=== PATIENT | female | born 1975 | race Caucasian/White ===

== ENCOUNTER → 2017-11-25 14:44 | Outpatient (CLI) | payer OTHER, SELFPAY | PROVIDERS: Family Provider Family Medicine; PCP Family Medicine; Visit Provider Obstetrics & Gynecology Gynecology | DX: O09.521 Supervision of elderly multigravida, first trimester (principal); Z3A.00 Weeks of gestation of pregnancy not specified | CPT/HCPCS: 36415; 84702 ==

== ENCOUNTER → 2017-11-26 09:13 | Outpatient (CLI) | payer OTHER, SELFPAY ==
--- NOTE | 2017-11-26 09:34 | US_ITS ---
STUDY: FIRST TRIMESTER OBSTETRICAL ULTRASOUND REASON FOR EXAM: Female, 41 years old. Supervision of first trimester. LMP: September 28, 2017 TECHNIQUE: Transvaginal PRIOR ULTRASOUND: None. FINDINGS: There is visualization of a single gestational sac in a normal intrauterine position. The mean sac diameter (MSD) measures 3.37 cm, indicating an estimated gestational age (EGA) of 8 weeks, 6 days. The gestational sac shape is within normal limits. There is a 2.3 x 0.9 x 0.5 cm subchorionic fluid collection. There is a visualized yolk sac. The yolk sac measures 6.7 mm. The placenta is non-visualized. There is visualization of a live embryo. The crown-rump length (CRL) measures 1.89 cm, indicating an estimated gestational age (EGA) of 8 weeks, 3 days. There is demonstrated cardiac activity with a heart rate of 157 bpm. The estimated gestation age (EGA) by LMP is 8 weeks, 3 days. The estimated date of delivery (EVER) by LMP is July 05, 2018. The estimated gestation age (EGA) by US is 8 weeks, 5 days. The estimated date of delivery (EVER) by US is July 03, 2018. The uterus measures 10.6 x 6.3 x 7.0 cm. There is no demonstrated uterine fibroid. The cervix is closed. There is nonvisualization of the ovaries. There is no fluid in the cul de sac. US/Transvaginal w/Preg US IMPRESSION: Viable early intrauterine with an estimated gestational age by ultrasound of 8 weeks and 5 days. 2.3 x 0.9 x 0.5 cm subchorionic hemorrhage. Electronically Signed: Emily Laughlin MD at 23:02 EDT Tel , Service support ,
== END ==
PROVIDERS: Family Provider Family Medicine; PCP Family Medicine; Visit Provider Obstetrics & Gynecology Gynecology
DX: O09.521 Supervision of elderly multigravida, first trimester (principal); Z3A.00 Weeks of gestation of pregnancy not specified
CPT/HCPCS: 76817

== ENCOUNTER → 2017-12-09 11:13 | Outpatient (CLI) | payer OTHER, SELFPAY ==
[2017-12-17 16:09] LABS: Activated Protein C Resistance 2.2 ratio (2.2-3.5); Dilute Prothrombin Time (dPT) 46.4 sec (0.0-55.0); Dilute Russell Viper Venom 40.1 sec (0.0-47.0); PTT-LA 31.8 sec (0.0-51.9); Thrombin Time 15.4 sec (0.0-23.0)
[2017-12-18 11:38] LABS: Anti-Cardiolipin Ab, IgG, Qn < 9 GPL U/mL (0-14); Anti-Cardiolipin Ab, IgM, Qn < 9 MPL U/mL (0-12); Interpretation Comment: (.); Protein S, Free 65 % (57-157); Protein S, Total 82 % (60-150)
== END ==
PROVIDERS: Family Provider Family Medicine; PCP Family Medicine; Visit Provider Obstetrics & Gynecology Gynecology
DX: Z34.81 Encounter for supervision of other normal pregnancy, first trimester (principal); Z86.72 Personal history of thrombophlebitis
CPT/HCPCS: 36415; 81240; 81241; 81291; 85305; 85306; 85307; 86147; 87086; 87088

== ENCOUNTER → 2018-02-02 07:59 | Outpatient (CLI) | payer OTHER, SELFPAY ==
--- NOTE | 2018-02-02 08:01 | US_ITS ---
STUDY: SECOND AND THIRD TRIMESTER OBSTETRICAL ULTRASOUND REASON FOR EXAM: Female, 42 years old. Routine survey. LMP: September 26, 2017. TECHNIQUE: Transabdominal TECHNICAL QUALITY: Adequate. PRIOR ULTRASOUND: Comparison is made with prior study dated November 26, 2017. FINDINGS: There is a single intrauterine fetus. The fetus is in a breech presentation. There is demonstrated cardiac activity with a heart rate of 142 bpm. There is a normal amniotic fluid volume. The largest amniotic fluid pocket measures 4.7 cm x 7.0 cm. The amniotic fluid index (ARTEMIO) is within normal limits. The placenta is posterior in location and is not low lying. There are Grade 0 placental changes. The cervix measures 4.6 cm in length. The bilateral adnexal regions are normal. BIOMETRY: BPD: 4.47 cm: 19 weeks, 4 days HC: 16.74 cm: 19 weeks, 3 days AC: 13.83 cm: 19 weeks, 2 days FL: 2.7 cm: 8 weeks, 2 days CI: 76% FL/BPD: 60% FL/HC: FL/AC: 20% HC/AC: 1.21 age by current US: 19 weeks, 1 days. EVER by current US: June 28, 2018. Estimated weight: 261 grams, +/- 38 grams, 71 %. age by prior US: 18 weeks, 3 days. EVER by prior US: July 03, 2018. Age by LMP: 18 weeks, 3 days. EVER by LMP: July 03, 2018. ANATOMY: Gender: Male Cranium: Normal lateral ventricles. Normal choroid plexus. Normal cerebellum. Normal cisterna magna. Normal face, nose and lips. Chest: Normal 4-chamber heart. Abdomen/Pelvis: Normal diaphragm. Normal stomach. Normal abdominal wall. Normal cord insertion. Normal 3 vessel cord. Normal kidneys. Normal bladder. Spine: Normal cervical spine. Normal thoracic spine. Normal lumbar spine. Normal sacrum. Extremities: Normal bilateral upper extremities. Normal bilateral lower extremities. US/OB Anatomy Scan IMPRESSION: Single live intrauterine gestation with a mean gestational age of 18 weeks and 3 days. The measurements obtained today fall within normal expected range. Electronically Signed: Wilder Tejada MD at 9:17 EDT Tel [phone], Service support ,
== END ==
PROVIDERS: Family Provider Family Medicine; PCP Family Medicine; Referring Provider Obstetrics & Gynecology Gynecology; Visit Provider Obstetrics & Gynecology Gynecology
DX: O09.512 Supervision of elderly primigravida, second trimester (principal)
CPT/HCPCS: 76805

== ENCOUNTER → 2018-02-16 06:18 | Outpatient (CLI) | payer OTHER, SELFPAY ==
[2018-02-16 08:28] LABS: Glucose GTT-Gestational 1 Hr 167 mg/dL (<190)
[2018-02-16 08:28] LABS: Glucose GTT-Gestation. Fasting 86 mg/dL (<105)
[2018-02-16 10:52] LABS: Glucose GTT-Gestational 2 Hr 131 mg/dL (<165)
[2018-02-16 10:53] LABS: Glucose GTT-Gestational 3 Hr 95 L (<145)
== END ==
PROVIDERS: Family Provider Family Medicine; PCP Family Medicine
DX: Z34.92 Encounter for supervision of normal pregnancy, unspecified, second trimester (principal)
CPT/HCPCS: 36415; 82951; 82952

== ENCOUNTER → 2018-02-17 15:45 | Outpatient (CLI) | payer OTHER, SELFPAY ==
--- NOTE | 2018-02-17 | LES_PTH ---
PATIENT: EDEL OLIVER LOC: [facility] U#:[id number] AGE/SX: 49/F ROOM: RE02/17/[address]: Dr. Mehdi Zeng MD : 1975 BED: DIS: SPEC #: [id number] RECD: 02/17/18 17:58 STATUS: [place] #: [id number] CARTER: 02/17/18 00:[address]: Mehdi Zeng DEPT: SURGICAL PATHOLOGY RECD BY: Carl Robertson Tissues: Skin of chest Procedures: Surgery Specimen Level IV HEADER OPERATION: Shave biopsy PRE-OP DIAGNOSIS: Rule out SCC TISSUE SUBMITTED: Right chest MICROSCOPIC DIAGNOSIS Skin lesion of right chest, shave biosy: Invasive squamous cell carcinoma. See comment. AM:digna 02/19/18 COMMENT The lesion is transected at the base. Clinical correlation is necessary. MICROSCOPIC DESCRIPTION Slides are reviewed. GROSS DESCRIPTION Received is one container labeled with the patient's name and not further designated. The specimen consists of a light pike shave biopsy of skin measuring 1 x 1 x 0.2 cm. The specimen is inked, sectioned and totally submitted in one cassette. / AM:digna 02/18/18 TC:0 CPT: 44425
== END ==
PROVIDERS: Family Provider Family Medicine; PCP Family Medicine; Visit Provider Family Medicine
DX: C44.529 Squamous cell carcinoma of skin of other part of trunk (principal)
CPT/HCPCS: 88305

== ENCOUNTER 2018-03-08 12:06 | Day surgery (SDC) | payer OTHER, SELFPAY ==
[2018-03-03 13:57] VITALS: BMI 28.8
[2018-03-08 12:33] VITALS: BP 134/72; PULSE 95; RESP 16; TEMP 36.8; O2SAT 99; BMI 28.7
[2018-03-08] MEDS: Cefadroxil 500 MG CAPSULE PO (12:47)
--- NOTE | 2018-03-08 13:30 | LES_PTH ---
PATIENT: EDEL OLIVER LOC: [facility] – [place], [place] U#:[id number] AGE/SX: 42/F ROOM: RE03/08/[address]: Dr. Johnathon Cary MD : 1975 BED: DIS: 03/08/2018 SPEC #: [id number] RECD: 03/08/18 16:03 STATUS: [place] #: [id number] CARTRE: 03/08/18 13:[address]: Johnathon Cary DEPT: SURGICAL PATHOLOGY RECD BY: Lawrence Malik ENTERED: 03/09/18 11:39 SP TYPE: Lesion OTHR DR: Dr. Mehdi Zeng MD Tissues: Skin of chest Procedures: Surgery Specimen Level IV HEADER OPERATION: Excision squamous cell carcinoma left chest wall with skin flap PRE-OP DIAGNOSIS: Invasive squamous cell carcinoma left upper chest wall TISSUE SUBMITTED: Squamous cell carcinoma left upper chest wall MICROSCOPIC DIAGNOSIS Squamous cell carcinoma left upper chest wall, excision: Invasive well differentiated squamous cell carcinoma, completely excised in the planes of sections examined. Focal dermal fibrosis consistent with scar, previous biopsy site. Perineural invasion is not seen. SJ:digna 03/10/18 COMMENT Please make reference to previous specimen ([id number]), skin lesion of right chest, shave biopsy with diagnosis of invasive squamous cell carcinoma. MICROSCOPIC DESCRIPTION Slides are reviewed. GROSS DESCRIPTION Received in fixative is one container labeled with the patient's name and designated squamous cell carcinoma. The specimen consists of a destiny-shaped fragment of excised skin with attached fibrofatty tissue. The specimen measures 2.5 x 1.8 cm and depth of excision measuring 0.6 cm. One tip of the specimen contains a suture. This tip and corresponding half is inked in black ink. The opposite half is inked in blue ink. The cutaneous surface displays a scar measuring 0.6 cm in greatest dimension. The specimen is serially sectioned and totally submitted in three cassettes as follows: 1 - tips, 2 & 3 - remainder of the specimen. / AM:digna 03/09/18 TC:0 CPT: 62408
[2018-03-08] MEDS: Mupirocin Ointment 22gm Tube 1 APPLIC (15:00)
--- NOTE | 2018-03-08 15:05 | OP.PN_ITS ---
Immediate Post-Op Note Date of Procedure: 03/08/18 Primary Surgeon/Physician: Johnathon Cary oracle distribution consultant: None Pre-Operative Diagnosis: 1. 8 mm invasive squamous cell carcinoma left upper chest wall just superior to her breast. 2. 5 and a half months . 3. snf use of anticoagulants. 4. History of blood clots. Post-Operative Diagnosis: Same. Surgery/Procedure Performed:: Excision 8 mm invasive squamous cell carcinoma left upper chest wall just superior to her breast with rhomboid transposition skin flap reconstruction (8 cm2). Description of Surgical Findings:: 42 year old female presents for evaluation for a TBSE. She has concerns about a lesion on her left chest that is enlarging in size. She initially had it burned off but then it came back and started to enlarge in size. Her PCP did a shave biopsy on 02/17/18 that showed invasive squamous cell carcinoma. She denies any bleeding. She denies any trauma. She denies any fever. She is 5 and a half months . Today the patient underwent excision 8 mm invasive squamous cell carcinoma left upper chest wall just superior to her breast with rhomboid transposition skin flap reconstruction (8 cm2). Estimated Blood Loss: 2 ml. Specimen's removed: Squamous cell carcinoma left upper chest wall just superior to her breast to Pathology. Drains: None. Type of Anesthesia:: Local - xylocaine with epinephrine. - Admit VTE Documentation VTE Present on Admission: No - Patient is on Lovenox during for history of blood clot. VTE Mechan Device Prophylaxis: SCD's VTE Pharm Prophylaxis ordered?: Yes
--- NOTE | 2018-03-08 15:09 | PCM.DC ---
You will use the following diet at home:: No restrictions Discharge Activity: May Shower - in two days., - - no heavy lifting. keep head elevated. May shower in (days): 2 May resume sexual activity in: No Restrictions Weight Bearing Status: Weight bearing as tolerated Lifting Restrictions: 20 lbs. Keep extremity elevated above heart level: - - head elevated. Call your doctor if your incision/area has: Continuous Slow Oozing, Sudden Increased Bleeding, Increased Pain/ Swelling, Increased Redness, Foul Smelling Discharge, Swelling at the incision site Call your doctor if you observe: Fever of 101 or Higher, Coldness, Increased Pain Suture Line Care: - - after dressing removed in two days, apply antibiotic ointment to suture line daily. Change Dressing in (Days):: 2 Cleanse incision/area with: - - may get incision wet in the shower in two days. Allergies/Adverse Reactions: Allergies No Known Allergies Allergy (Verified 03/03/18 13:50) Medications to take at Discharge aspirin 81 mg chewable tablet 81 mg PO DAILY 03/03/18 enoxaparin 40 mg/0.4 mL subcutaneous syringe 40 mg SC DAILY 03/03/18 vitamins no. 112-folate comb.no.6 1 mg chewable tablet mg PO tab 03/03/18 Acetaminophen/Codeine #3 [Tylenol#3] 1 tab PO 4X/DAY PRN PRN 4 Days #15 tab 03/08/18 Amoxicillin 500 mg PO TID #12 tab 03/08/18 Folic Acid 0.4 mg PO DAILY@0800 03/08/18 The following prescriptions were given: Acetaminophen/Codeine #3 [Tylenol#3] 1 tab PO 4X/DAY PRN PRN 4 Days #15 tab PRN Reason: Pain Amoxicillin 500 mg PO TID #12 tab Primary Care Physician: Christiano Zeng MD [Primary Care Provider] - Test Results: Test results from this visit will be discussed in further detail at your follow-up appointment, if applicable. Please Follow Up With: Johnathon Cary MD When: one week. call [phone] for appt. Proposed Discharge Date: 03/08/18
--- NOTE | 2018-03-08 15:14 | DCINST_ITS ---
You will use the following diet at home:: No restrictions Discharge Activity: May Shower - in two days., - - no heavy lifting. keep head elevated. May shower in (days): 2 May resume sexual activity in: No Restrictions Weight Bearing Status: Weight bearing as tolerated Lifting Restrictions: 20 lbs. Keep extremity elevated above heart level: - - head elevated. Call your doctor if your incision/area has: Continuous Slow Oozing, Sudden Increased Bleeding, Increased Pain/ Swelling, Increased Redness, Foul Smelling Discharge, Swelling at the incision site Call your doctor if you observe: Fever of 101 or Higher, Coldness, Increased Pain Suture Line Care: - - after dressing removed in two days, apply antibiotic ointment to suture line daily. Change Dressing in (Days):: 2 Cleanse incision/area with: - - may get incision wet in the shower in two days. Allergies/Adverse Reactions: Allergies No Known Allergies Allergy (Verified 03/03/18 13:50) Medications to take at Discharge aspirin 81 mg chewable tablet 81 mg PO DAILY 03/03/18 enoxaparin 40 mg/0.4 mL subcutaneous syringe 40 mg SC DAILY 03/03/18 vitamins no. 112-folate comb.no.6 1 mg chewable tablet mg PO tab 03/03/18 Acetaminophen/Codeine #3 [Tylenol#3] 1 tab PO 4X/DAY PRN PRN 4 Days #15 tab 03/08/18 Amoxicillin 500 mg PO TID #12 tab 03/08/18 Folic Acid 0.4 mg PO DAILY@0800 03/08/18 The following prescriptions were given: Acetaminophen/Codeine #3 [Tylenol#3] 1 tab PO 4X/DAY PRN PRN 4 Days #15 tab PRN Reason: Pain Amoxicillin 500 mg PO TID #12 tab Primary Care Physician: Christiano Zeng MD [Primary Care Provider] - Test Results: Test results from this visit will be discussed in further detail at your follow- up appointment, if applicable. Please Follow Up With: Johnathon Cary MD When: one week. call [phone] for appt. Proposed Discharge Date: 03/08/18
--- NOTE | 2018-03-08 19:28 | PCM.OPRPT ---
Report of Operation Date of Procedure: 03/08/18 Pre-Operative Diagnosis: 1. 8 mm invasive squamous cell carcinoma left upper chest wall just superior to her breast. 2. 5 and a half months . 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 4. History of blood clots. Post-Operative Diagnosis: Same. Surgery/Procedure Performed:: Excision 8 mm invasive squamous cell carcinoma left upper chest wall just superior to her breast with rhomboid transposition skin flap reconstruction (8 cm2). Description of Surgical Findings:: 42 year old female presents for evaluation for a TBSE. She has concerns about a lesion on her left chest that is enlarging in size. She initially had it burned off but then it came back and started to enlarge in size. Her PCP did a shave biopsy on 02/17/18 that showed invasive squamous cell carcinoma. She denies any bleeding. She denies any trauma. She denies any fever. She is 5 and a half months . Patient was informed of the risks and complications of the procedure including alternatives to surgery. These were discussed with the patient personally. Patient voices understanding and wishes to proceed. Some of the risks and complications were included in a form from the [employer]. billing coordinator: None Type of Anesthesia:: Local - xylocaine with epinephrine. Specimen's removed: Squamous cell carcinoma left upper chest wall just superior to her breast to Pathology. Drains: None. Estimated Blood Loss (mL): 2 ml. Description of Procedure: Patient was taken to OR in supine position and her left upper chest wall just superior to her breast was prepped and draped in the usual fashion. SCD's were placed for DVT prophylaxis. Perioperative antibiotics were given orally (Cefadroxil). The lesion left chest wall was infiltrated with xylocaine and epinephrine. After waiting 5 minutes for the anesthetic to take effect, I proceeded with an excision of this squamous cell carcinoma in a rhomboid fashion with a 6 mm margin in all directions. This made it a 2 cm excision. A suture was marked at the 12 oclock position and was sent to Pathology for analysis to rule out carcinoma. Hemostasis was obtained with electrocautery. A rhomboid flap was designed adjacent to the wound. After infiltrating with Xylocaine with epinephrine, incisions were made in the flap design down into the subcutaneous tissue down to the muscular fascia. Patient tolerated it reasonably well. The rhomboid flap was then transposed into the defect with minimal tension and minimal distortion. The size of the defect and the size of the flap needed to close the defect was 8 cm2. The wound was then closed in a layered fashion with 3-0 Monocryl interrupted sutures for the deep dermis and subcutaneous tissue. The skin was approximated with 4-0 Prolene simple interrupted sutures. Antibiotic ointment was applied to the suture line followed by a gauze dressing. Patient tolerated the procedure well and was sent to PACU in satisfactory condition. Patient will be sent home on antibiotics and pain medication. She will keep her head elevated during the initial postop period. Patient will followup in a week for a wound check and for discussion of the pathology report and for removal of the sutures. Grafts/Implants Used: None. - Complications None. - Admit VTE Documentation VTE Present on Admission: No - Patient is on Lovenox during her because of hx of blood clots. VTE Mechan Device Prophylaxis: SCD's VTE Pharm Prophylaxis ordered?: Yes Code Visit Surgery Charges CPT - 16278 ICD-10 - C44.521, Z34.90, Z86.718, Z79.01
--- NOTE | 2018-03-09 00:28 | OP.PCM_ITS ---
Report of Operation Date of Procedure: 03/08/18 Pre-Operative Diagnosis: 1. 8 mm invasive squamous cell carcinoma left upper chest wall just superior to her breast. 2. 5 and a half months . 3. 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 4. History of blood clots. Post-Operative Diagnosis: Same. Surgery/Procedure Performed:: Excision 8 mm invasive squamous cell carcinoma left upper chest wall just superior to her breast with rhomboid transposition skin flap reconstruction (8 cm2). Description of Surgical Findings:: 42 year old female presents for evaluation for a TBSE. She has concerns about a lesion on her left chest that is enlarging in size. She initially had it burned off but then it came back and started to enlarge in size. Her PCP did a shave biopsy on 02/17/18 that showed invasive squamous cell carcinoma. She denies any bleeding. She denies any trauma. She denies any fever. She is 5 and a half months . Patient was informed of the risks and complications of the procedure including alternatives to surgery. These were discussed with the patient personally. Patient voices understanding and wishes to proceed. Some of the risks and complications were included in a form from the [employer]. certified neurodiagnostic technologist: None Type of Anesthesia:: Local - xylocaine with epinephrine. Specimen's removed: Squamous cell carcinoma left upper chest wall just superior to her breast to Pathology. Drains: None. Estimated Blood Loss (mL): 2 ml. Description of Procedure: Patient was taken to OR in supine position and her left upper chest wall just superior to her breast was prepped and draped in the usual fashion. SCD's were placed for DVT prophylaxis. Perioperative antibiotics were given orally (Cefadroxil). The lesion left chest wall was infiltrated with xylocaine and epinephrine. After waiting 5 minutes for the anesthetic to take effect, I proceeded with an excision of this squamous cell carcinoma in a rhomboid fashion with a 6 mm margin in all directions. This made it a 2 cm excision. A suture was marked at the 12 oclock position and was sent to Pathology for analysis to rule out carcinoma. Hemostasis was obtained with electrocautery. A rhomboid flap was designed adjacent to the wound. After infiltrating with Xylocaine with epinephrine, incisions were made in the flap design down into the subcutaneous tissue down to the muscular fascia. Patient tolerated it reasonably well. The rhomboid flap was then transposed into the defect with minimal tension and minimal distortion. The size of the defect and the size of the flap needed to close the defect was 8 cm2. The wound was then closed in a layered fashion with 3-0 Monocryl interrupted sutures for the deep dermis and subcutaneous tissue. The skin was approximated with 4-0 Prolene simple interrupted sutures. Antibiotic ointment was applied to the suture line followed by a gauze dressing. Patient tolerated the procedure well and was sent to PACU in satisfactory condition. Patient will be sent home on antibiotics and pain medication. She will keep her head elevated during the initial postop period. Patient will followup in a week for a wound check and for discussion of the pathology report and for removal of the sutures. Grafts/Implants Used: None. - Complications None. - Admit VTE Documentation VTE Present on Admission: No - Patient is on Lovenox during her because of hx of blood clots. VTE Mechan Device Prophylaxis: SCD's VTE Pharm Prophylaxis ordered?: Yes Code Visit Surgery Charges CPT - 37532 ICD-10 - C44.521, Z34.90, Z86.718, Z79.01
== END 2018-03-08 15:33 | disposition home or self-care (01) ==
LOC: SDC 12:07 → AC 12:08
PROVIDERS: Family Provider Family Medicine; PCP Family Medicine; Referring Provider Surgery; Visit Provider Surgery
PROC: (CPT 14000; principal; 2018-03-08 13:20)
DX: O26.893 Other specified pregnancy related conditions, third trimester (principal); C44.521 Squamous cell carcinoma of skin of breast; Z86.718 Personal history of other venous thrombosis and embolism; Z79.01 Long term (current) use of anticoagulants; Z3A.00 Weeks of gestation of pregnancy not specified
CPT/HCPCS: 14000; 88305; J7120

== ENCOUNTER → 2018-04-10 07:03 | Outpatient (CLI) | payer OTHER, SELFPAY ==
[2018-03-15 14:45] VITALS: BMI 28.7
[2018-04-10 08:40] LABS: Glucose Challenge Gest 1H 50g 150 mg/dL (70-140)
== END ==
PROVIDERS: Family Provider Family Medicine; PCP Family Medicine; Referring Provider Obstetrics & Gynecology Gynecology; Visit Provider Obstetrics & Gynecology Gynecology
DX: O09.522 Supervision of elderly multigravida, second trimester (principal)
CPT/HCPCS: 36415; 82950

== ENCOUNTER → 2018-04-21 06:39 | Outpatient (CLI) | payer OTHER, SELFPAY ==
[2018-03-15 14:45] VITALS: BMI 28.7
[2018-04-21 07:25] LABS: Glucose GTT-Gestation. Fasting 87 mg/dL (<105)
[2018-04-21 09:09] LABS: Hematocrit 36.8 % (37-47); Mean Corp Hgb Conc 32.6 g/gl (32-36); Mean Corpuscular Hgb 31.9 pg (27.0-32.0); Mean Corpuscular Volume 97.9 fL (81-99); Mean Platelet Vol. 10.4 fl (6.2-12.0); Platelet Count 262 K/mm3 (150-450); RBC Distribution Width CV 14.5 % (11.6-14.6); RBC Distribution Width SD 51.2 fl (35.1-43.9); Red Blood Count 3.76 M/mm3 (4.2-5.4); White Blood Count 12.5 K/mm3 (4.4-11.0)
[2018-04-21 09:10] LABS: Differential Indicated MANUAL DIFF; POSITIVE COUNT YES; POSITIVE DIFFERENTIAL NO; POSITIVE MORPHOLOGY YES
[2018-04-21 09:11] LABS: Glucose GTT-Gestational 1 Hr 187 mg/dL (<190)
[2018-04-21 09:22] LABS: Glucose GTT-Gestational 2 Hr 117 mg/dL (<165)
[2018-04-21 09:42] LABS: Eosinophil 1 % (0-5); Lymphocyte 12 % (19-41); Metamyelocyte 1 % (0-1); Monocyte 5 % (0-10); Neutrophil-Band 1 % (0-5); Neutrophil-Segmented 80 % (47-70); Platelet Estimate ADEQUATE (ADEQ); Red Cell Morphology NORM C+C NORMAL (NORM C&C); Total Cells Counted 100 (MANUAL DIFF)
[2018-04-21 09:46] LABS: Rubella IgG 33.5 IU/mL
[2018-04-21 11:52] LABS: Glucose GTT-Gestational 3 Hr 148 L (<145)
[2018-04-21 14:38] LABS: Absolute Neutrophil Count 10.1 X10^3/uL (2.0-7.7)
[2018-04-22 08:52] LABS: HEPATITIS B SURFACE AG Negative (Negative)
[2018-04-23 01:41] LABS: Prenatal RPR NONREACTIVE (NONREACTIVE)
== END ==
PROVIDERS: Family Provider Family Medicine; PCP Family Medicine; Referring Provider Obstetrics & Gynecology Gynecology; Visit Provider Obstetrics & Gynecology Gynecology
DX: Z34.81 Encounter for supervision of other normal pregnancy, first trimester (principal); Z86.72 Personal history of thrombophlebitis; R73.9 Hyperglycemia, unspecified
CPT/HCPCS: 36415; 82951; 82952; 85025; 86762; 87340

== ENCOUNTER → 2018-04-26 12:17 | Outpatient (CLI) | payer OTHER, SELFPAY ==
[2018-03-15 14:45] VITALS: BMI 28.7
--- NOTE | 2018-04-26 12:20 | US_ITS ---
STUDY: SECOND AND THIRD TRIMESTER OBSTETRICAL ULTRASOUND - LIMITED REASON FOR EXAM: Female, 42 years old. Routine survey. LMP: September 26, 2017. PRIOR ULTRASOUND: Comparison is made with prior study dated February 02, 2018. TECHNIQUE: Transabdominal TECHNICAL QUALITY: Adequate. FINDINGS: There is a single intrauterine fetus. The fetus is in a cephalic presentation. There is demonstrated cardiac activity with a heart rate of 139 bpm. There is a normal amniotic fluid volume. The largest amniotic fluid pocket measures 4.3 cm x 4.7 cm. The amniotic fluid index (ARTEMIO) is 14.1 cm. The placenta is fundal and posterior in location. There are Grade 1 placental changes. The cervix measures 4.34 cm in length. BIOMETRY: BPD: 8.45 cm: 34 weeks, 1 days HC: 30.39 cm: 33 weeks, 6 days AC: 27.65 cm: 31 weeks, 5 days FL: 5.83 cm: 30 weeks, 4 days Age by LMP: 30 weeks, 2 days. EVER by LMP: July 03, 2018. age by prior US: 31 weeks, 0 days. EVER by prior US: June 28, 2018. age by current US: 32 weeks, 4 days. EVER by current US: June 09, 2018. Estimated weight: 1825 grams, +/- 266 grams, 85 percentile. Gender: Male US/OB Limited With Biometrics IMPRESSION: Single live intrauterine gestation with a mean gestational age of 31 weeks. The measurements obtained today following the normal expected range. Electronically Signed: Wilder Tejada MD at 13:07 EST Tel [phone], Service support ,
== END ==
PROVIDERS: Family Provider Family Medicine; PCP Family Medicine; Referring Provider Obstetrics & Gynecology Gynecology; Visit Provider Obstetrics & Gynecology Gynecology
DX: O26.842 Uterine size-date discrepancy, second trimester (principal); Z3A.00 Weeks of gestation of pregnancy not specified
CPT/HCPCS: 76816

== ENCOUNTER → 2018-06-10 12:11 | Outpatient (CLI) | payer OTHER, SELFPAY ==
[2018-03-15 14:45] VITALS: BMI 28.7
[2018-06-10 12:52] LABS: Hematocrit 38.1 % (37-47); Hemoglobin 12.5 g/dl (12.0-15.0); Mean Corp Hgb Conc 32.8 g/gl (32-36); Mean Corpuscular Hgb 32.6 pg (27.0-32.0); Mean Corpuscular Volume 99.5 fL (81-99); Platelet Count 200 K/mm3 (150-450); RBC Distribution Width CV 14.9 % (11.6-14.6); RBC Distribution Width SD 52.4 fl (35.1-43.9); Red Blood Count 3.83 M/mm3 (4.2-5.4); White Blood Count 9.8 K/mm3 (4.4-11.0)
[2018-06-10 12:59] LABS: Scan Indicated on CBC? Y/N NO
[2018-06-10 13:15] LABS: Partial Thromboplast Time 24.6 Seconds (24.1-36.2)
== END ==
PROVIDERS: Family Provider Family Medicine; PCP Family Medicine
DX: Z86.718 Personal history of other venous thrombosis and embolism (principal)
CPT/HCPCS: 36415; 85027; 85730

== ENCOUNTER 2018-06-14 12:14 | Outpatient (RCR) | payer OTHER, SELFPAY ==
[2018-03-15 14:45] VITALS: BMI 28.7
[2018-06-14 13:10] LABS: Partial Thromboplast Time 25.8 Seconds (24.1-36.2)
== END 2018-06-17 13:24 | disposition home or self-care (01) ==
LOC: LAB 12:14
PROVIDERS: Family Provider Family Medicine; PCP Family Medicine
DX: Z86.718 Personal history of other venous thrombosis and embolism (principal)
CPT/HCPCS: 36415; 85730

== ENCOUNTER → 2018-06-18 13:07 | Outpatient (CLI) | payer OTHER, SELFPAY ==
[2018-03-15 14:45] VITALS: BMI 28.7
--- NOTE | 2018-06-18 13:11 | US_ITS ---
STUDY: SECOND AND THIRD TRIMESTER OBSTETRICAL ULTRASOUND - LIMITED REASON FOR EXAM: Female, 42 years old. Routine survey. LMP: September 26, 2017. PRIOR ULTRASOUND: April 26, 2018. TECHNIQUE: Transabdominal TECHNICAL QUALITY: Adequate. FINDINGS: There is a single intrauterine fetus. The fetus is in a cephalic presentation. There is demonstrated cardiac activity with a heart rate of 127 bpm. There is a normal amniotic fluid volume. The largest amniotic fluid pocket measures 5.3 cm x 4.0 cm. The amniotic fluid index (ARTEMIO) is 14.3 cm. The placenta is fundal in location. There are Grade 3 placental changes. The cervix measures 3.1 cm in length. BIOMETRY: BPD: 9.75 cm: 40 weeks, 0 days HC: 35.02 cm: 40 weeks, 6 days AC: 37.02 cm: 41 weeks, 0 days FL: 7.54 cm: 30 weeks, 4 days Age by LMP: 37 weeks, 6 days. EVER by LMP: July 03, 2018. age by prior US: 40 weeks, 1 days. EVER by prior US: June 17, 2018. age by current US: 40 weeks, 1 days. EVER by current US: June 17, 2018. Estimated weight: 4056 grams, +/- 592 grams, 98 percentile. Gender: Male US/OB Limited With Biometrics IMPRESSION: Single live intrauterine gestation with a mean gestational age of 40 weeks and 1 day. The measurements obtained today fail within normal expected range. Electronically Signed: Wilder Tejada, at 14:52 EST , Service support ,
== END ==
PROVIDERS: Family Provider Family Medicine; PCP Family Medicine; Referring Provider Obstetrics & Gynecology Gynecology; Visit Provider Obstetrics & Gynecology Gynecology
DX: O26.843 Uterine size-date discrepancy, third trimester (principal); Z3A.00 Weeks of gestation of pregnancy not specified
CPT/HCPCS: 76816

== ENCOUNTER 2018-06-23 18:57 | Inpatient (IN) | payer OTHER, SELFPAY ==
[2018-03-15 14:45] VITALS: BMI 28.7
[2018-06-23 19:24] VITALS: BMI 30.5
[2018-06-23 19:58] LABS: Hematocrit 39.4 % (37-47); Hemoglobin 12.9 g/dl (12.0-15.0); Mean Corp Hgb Conc 32.7 g/gl (32-36); Mean Corpuscular Hgb 31.7 pg (27.0-32.0); Mean Corpuscular Volume 96.8 fL (81-99); Mean Platelet Vol. 11.4 fl (6.2-12.0); Platelet Count 212 K/mm3 (150-450); RBC Distribution Width CV 14.4 % (11.6-14.6); Red Blood Count 4.07 M/mm3 (4.2-5.4); White Blood Count 11.9 K/mm3 (4.4-11.0)
[2018-06-23] MEDS: Lactated Ringers 1,000 ML 50 ML IV (19:59)
[2018-06-23] MEDS: Oxytocin 30 units/NS 500 ml 30 UNITS/500 ML IV.SOLN IV (19:59)
[2018-06-23 20:05] LABS: Scan Indicated on CBC? Y/N NO
[2018-06-23 20:21] LABS: Bedside Glucose 99 mg/dL (70-110)
--- NOTE | 2018-06-23 21:11 | HP.PCM_ITS ---
- Problem List (1) Gestational diabetes mellitus (GDM) affecting fifth Status: Acute (2) Elderly multigravida in third trimester Status: Acute (3) macrosomia during in third trimester Status: Acute History Date of Admission: 06/23/18 Final EVER: 07/02/18 Final EVER Source: LMP Gestational age: 38 Weeks and 5 Days History of this : This is a 42 year-old, G [], P [], at 38 weeks gestational age. Medical History: Medical History (This Medical Record has been edited. Action required.) History of blood clots Z86.718 History of kidney stones Z87.442 High blood pressure I10 Surgical History: Surgical History (This Medical Record has been edited. Action required.) Mass of soft tissue of right lower extremity R22.41 MASS REMOVED FROM RIGHT LEG IN 1980 Allergies No Known Allergies Allergy (Verified 03/15/18 14:45) Home Medications: Home Medications enoxaparin 40 mg/0.4 mL subcutaneous syringe 40 mg SC DAILY 03/03/18 vitamins no. 112-folate comb.no.6 1 mg chewable tablet 1 tab PO DAILY tab 03/03/18 Folic Acid 0.4 mg PO DAILY@0800 03/08/18 Smoking Status: Never smoker Alcohol: None Heart Tracing: category I FHR with ctxs q 3' on 2 miu/minute Pitocin. History Past Pregnancies: Past Pregnancies Delivery Date Name GA/Weeks Outcome Route Weight Gender Labor Length Anesthesia Delivery Location Provider FOB Expected Delivery Method: Spontaneous Vaginal Describe any other labor & delivery plans:: Monitor BS closely in labor. Prepare to handle shoulder dystocia. Review of Systems Constitutional: Denies: Malaise Eyes: Denies: Blurred vision Cardiovascular: Denies: Chest Pain, Palpitations Respiratory: Denies: Shortness of Breath Gastrointestinal: Denies: Abdominal Pain, Dyspepsia, Nausea Genitourinary: Denies: Dysuria Gynecological: Denies: Vaginal bleeding Neurological: Denies: Numbness, Tingling, Focal weakness Psychiatric: Denies: Anxiety, Depression, Homicidal Ideations, Suicidal Ideations Hematologic/ Lymphatic: Reports: Hx of blood clot. Denies: Easy Bruising, Easy Bleeding Physical Exam General: Alert, Oriented x3, No apparent distress HEENT: Atraumatic, Normocephalic. Negative for: Thyromegaly, Lymphadenopathy Cardiovascular: Regular rate, Regular Rhythm Lungs: Clear to auscultation Abdomen: Gravid Extremities:: No edema, No tenderness/swelling Neurological: Cranial nerves II-XII grossly intact, Neuro grossly intact. 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 Action required.) Gestational diabetes mellitus (GDM) affecting fifth (Acute) Elderly multigravida in third trimester (Acute) macrosomia during in third trimester (Acute) This is a 42 year-old, G [], P [], at 38 weeks gestational age. for Oxytocin induction of labor
[2018-06-23 21:16] LABS: Bedside Glucose 89 mg/dL (70-110)
[2018-06-24 01:16] LABS: Bedside Glucose 98 mg/dL (70-110)
--- NOTE | 2018-06-24 03:17 | PCM.PN.BLA ---
Progress Note Came in to evaluate patient who is adriana q 2-3 minutes on 5 miu/min Pitocin. Patient breathing easily with ctxs, calling them 08/27. VE: 2-3/50% /-3, membranes swept, patient allowed to void and binder applied, after which cervix more like 3/70%/-2, so AROM carried out for large amount clear AF.
--- NOTE | 2018-06-24 03:23 | PN_ITS ---
Progress Note Came in to evaluate patient who is adriana q 2-3 minutes on 5 miu/min Pitocin. Patient breathing easily with ctxs, calling them 08/27. VE: 2-3/50% /- 3, membranes swept, patient allowed to void and binder applied, after which cervix more like 3/70%/-2, so AROM carried out for large amount clear AF.
[2018-06-24 05:11] LABS: Bedside Glucose 84 mg/dL (70-110)
[2018-06-24 08:56] LABS: Bedside Glucose 108 mg/dL (70-110)
--- NOTE | 2018-06-24 10:07 | PCM.PN.BLA ---
Progress Note Came in about 1000 to evaluate patient who quite uncomfortable and tired: requesting something for pain. Discussed options and she is willing to try Nitrous. FHR had been category I until patient went into the shower at 0910. VE 6-7cm, TAMARA. Patient adriana q 3 minutes. Finally in active stage and will follow closely. FHR currently 140's with good variability. Encouragement given. AT 1020 patient using Nitrous with some benefit. Variable decels noted with ctxs. Variability is excellent. At 1100 patient feeling pressure with ctxs. Looks tired and beginning to lose her usual confidence. VE : 9cm, with scalp overriding noted. OA. Attempted digital reduction of cervix with pushing x 1 ctx, but unsuccessful. Pt asking whether she should not have a section because I dont feel I can do this. Reassured she has moved along very well since entering active phase, so there is definitely not a clear indication at this point, beyond those thta existed before our decision to opt for MEL instead of an elective section. Encouragement given. FHR category II with good variability and variables noted with ctxs- prompt recovery. Will recheck in a half hour. At 1120 the patient complained of increased pressure in her vaginal exam showed the cervix to be at her room which reduced over the next contraction. She was determined to be complete at 1122. The patient then had an irresistible urged to push and was encouraged to do so. The team was called in for delivery.
[2018-06-24 10:31] LABS: Bedside Glucose 86 mg/dL (70-110)
[2018-06-24] MEDS: Lactated Ringers 1,000 ML 50 ML IV (11:13)
[2018-06-24] MEDS: Oxytocin 10 UNITS/ML Vial IM (11:50)
--- NOTE | 2018-06-24 11:58 | PCM.OB.VAG ---
- Problem List (1) Gestational diabetes mellitus (GDM) affecting fifth Status: Acute (2) Elderly multigravida in third trimester Status: Acute (3) macrosomia during in third trimester Status: Acute Vaginal Delivery Maternal Presentation: Medically Indicated Induction Method of Induction: Pitocin Medical Reason for Induction: Maternal Medical Condition: list: - see H&P Amniotic Membrane Rupture Type: Artificial Rupture of Membrane time: 0300 Amniotic Fluid Description: Clear Final EVER: 07/02/18 Final EVER Source: US <20 weeks Gestational age: 38 Weeks and 6 Days Type of Anesthesia: None Presentation: TAMARA Placental Delivery Description: Expressed Placenta Disposition: [facility] Cord Vessel Description: 3 Vessels Nuchal Cord Compression: Without compression Cord Gases drawn per routine: ABG, VBG Cord Entanglement: Around neck x 1, loose A gender: Male (1 minute): 8 (5 minute): 10 Episiotomy Description: None Laceration: None Medications given after delivery: IV Pitocin Complications: None - Delivery was complicated by shoulder dystocia which took 1 minute and 25 seconds to resolve using Shine position and suprapubic pressure as well as internal rotation of the shoulders to an anterior posterior dimension. The infant was floppy on delivery and the cord was clamped and cut long immediately and he was handed off to the waiting telephone sales representative for resuscitation. Cord gases were obtained immediately. IV Pitocin was given and third stage managed actively for complete placenta with battledore insertion. The vagina and perineum were inspected and found to be intact. The bladder was catheterized for approximately 50 mL urine. Shortly after this the patient's IV disconnected and intramuscular Pitocin was ordered 10 units and given. A new IV was restarted for IV Pitocin. Thousand micrograms of Cytotec was placed intra rectally.
--- NOTE | 2018-06-24 12:03 | OP.PCM_ITS ---
- Problem List (1) Gestational diabetes mellitus (GDM) affecting fifth Status: Acute (2) Elderly multigravida in third trimester Status: Acute (3) macrosomia during in third trimester Status: Acute Vaginal Delivery Maternal Presentation: Medically Indicated Induction Method of Induction: Pitocin Medical Reason for Induction: Maternal Medical Condition: list: - see H&P Amniotic Membrane Rupture Type: Artificial Rupture of Membrane time: 0300 Amniotic Fluid Description: Clear Final EVER: 07/02/18 Final EVER Source: US <20 weeks Gestational age: 38 Weeks and 6 Days Type of Anesthesia: None Presentation: TAMARA Placental Delivery Description: Expressed Placenta Disposition: [facility] Cord Vessel Description: 3 Vessels Nuchal Cord Compression: Without compression Cord Gases drawn per routine: ABG, VBG Cord Entanglement: Around neck x 1, loose A gender: Male (1 minute): 8 (5 minute): 10 Episiotomy Description: None Laceration: None Medications given after delivery: IV Pitocin Complications: None - Delivery was complicated by shoulder dystocia which took 1 minute and 25 seconds to resolve using Shine position and suprapubic pressure as well as internal rotation of the shoulders to an anterior posterior dimension. The infant was floppy on delivery and the cord was clamped and cut long immediately and he was handed off to the waiting transportation supervisor for resusc itation. Cord gases were obtained immediately. IV Pitocin was given and third stage managed actively for complete placenta with battledore insertion. The vagina and perineum were inspected and found to be intact. The bladder was catheterized for approximately 50 mL urine. Shortly after this the patient's IV disconnected and intramuscular Pitocin was ordered 10 units and given. A new IV was restarted for IV Pitocin. Thousand micrograms of Cytotec was placed intra rectally.
[2018-06-24] MEDS: miSOPROStol 200 MCG Tablet 1000 MCG RECTAL (12:39)
[2018-06-24] MEDS: Acetaminophen 325 MG Tablet PO (12:50)
[2018-06-24 13:15] LABS: Bedside Glucose 105 mg/dL (70-110)
[2018-06-24 14:10] VITALS: BP 130/65; PULSE 92; RESP 16; TEMP 37.6
[2018-06-24] MEDS: Enoxaparin 40 MG/0.4 ML Syringe SC (17:25)
[2018-06-24 19:40] VITALS: BP 121/72; PULSE 104; RESP 18; TEMP 37.4; O2SAT 98
[2018-06-24] MEDS: Ibuprofen 600 MG Tablet PO (19:42)
[2018-06-25 00:30] VITALS: BP 123/70; PULSE 82; RESP 16; TEMP 36.4; O2SAT 95
[2018-06-25 04:24] VITALS: BP 122/69; PULSE 87; RESP 16; TEMP 36.5; O2SAT 94
[2018-06-25 05:35] LABS: Hematocrit 37.3 % (37-47); Hemoglobin 12.5 g/dl (12.0-15.0); Mean Corp Hgb Conc 33.5 g/gl (32-36); Mean Corpuscular Hgb 32.7 pg (27.0-32.0); Mean Corpuscular Volume 97.6 fL (81-99); Mean Platelet Vol. 11.4 fl (6.2-12.0); Platelet Count 187 K/mm3 (150-450); RBC Distribution Width CV 14.3 % (11.6-14.6); RBC Distribution Width SD 48.4 fl (35.1-43.9); Red Blood Count 3.82 M/mm3 (4.2-5.4)
[2018-06-25 06:00] LABS: Scan Indicated on CBC? Y/N NO
--- NOTE | 2018-06-25 07:33 | PCM.PN.OB ---
Patient Problems: Active and Suspected Problems (This Medical Record has been edited. Action required.) Gestational diabetes mellitus (GDM) affecting fifth (Acute) Elderly multigravida in third trimester (Acute) macrosomia during in third trimester (Acute) Subjective: no c/o. Lochia moderate - Physical Exam General: Alert, Oriented x3, Cooperative, No apparent distress HEENT: Atraumatic Lungs: Clear to auscultation Cardiovascular: Regular rate, Regular Rhythm, No murmurs Abdomen: Soft - Uterus firm at u-2 Extremities: No edema, No Calf Tenderness Psych/Mental Status: Normal Affect Vital Signs Temp Pulse Resp BP Pulse Ox 97.7 F L 87 16 122/69 H 94 06/25/18 04:24 06/25/18 04:24 06/25/18 04:24 06/25/18 04:24 06/25/18 04:24 Oxygen Delivery Method Room Air Weight: 85.9 kg Body Mass Index (BMI) 30.5 Intake and Output for Last 24 Hours 06/23/18 06/24/18 06/25/18 23:59 23:59 23:59 Output Total 1250 / 1250 Balance -1250 / -1250 Laboratory Tests Past 24 Hrs 06/25/18 04:21 WBC 15.0 H RBC 3.82 L Hgb 12.5 Hct 37.3 MCV 97.6 MCH 32.7 H MCHC 33.5 RDW 14.3 RDW Differential 48.4 H Plt Count 187 MPV 11.4 POC Glucose 06/24/18 06/24/18 06/24/18 12:53 10:27 08:51 POC Glucose 105 86 108 Medical Necessity - Tobacco Use Smoking Status: Never smoker Assessment/Plan All Active Problems (This Medical Record has been edited. Action required.) Gestational diabetes mellitus (GDM) affecting fifth (Acute) Elderly multigravida in third trimester (Acute) macrosomia during in third trimester (Acute) Post day #1 after . Home as long as baby discharged. CT daily Lovenox 40mg.
--- NOTE | 2018-06-25 07:37 | PCM.DCVAG ---
Discharge Diet: No Restrictions Discharge Activity: No Restrictions, May Shower Return to work on:: 08/09/18 May shower in (days): 0 - no tub baths 6 wks May resume sexual activity in: 4-6 weeks Call your doctor if your incision/area has: Sudden Increased Bleeding, Increased Pain/ Swelling Call your doctor if you observe: Fever of 101 or Higher, Inability to urinate Additional Instructions: If you experience any of the following, contact your healthcare provider. Bleeding that soaks a pad every hour for 2 hours Fever 100.4 or higher Unrelieved incision or abdominal pain Swelling, redness, discharge or bleeding from your incision or episiotomy site Your incision begins to separate Problems urinating (including inability to urinate or burning while urinating). Visual changes Severe headache Flu-like symptoms Pain or redness in one of both of your breasts Pain, warmth, tenderness or swelling in your legs, especially the calf area Frequent nausea and vomiting Symptoms of depression or anxiety If you experience any of the following, call 911 or go to the nearest Emergency Room. Chest pain Problems breathing Seizure activity Partial or complete paralysis of a body part, slurred speech, weakness or drooping of the face, or a sudden inability to walk or hold your balance Allergies/Adverse Reactions: Allergies No Known Allergies Allergy (Verified 03/15/18 14:45) Medications to take at Discharge enoxaparin 40 mg/0.4 mL subcutaneous syringe 40 mg SC DAILY 03/03/18 vitamins no. 112-folate comb.no.6 1 mg chewable tablet 1 tab PO DAILY tab 03/03/18 Folic Acid 0.4 mg PO DAILY@0800 03/08/18 Primary Care Physician: Christiano Zeng MD [Primary Care Provider] - Test Results: Test results from this visit will be discussed in further detail at your follow-up appointment, if applicable. Proposed Discharge Date: 06/25/18
--- NOTE | 2018-06-25 07:40 | DCINST_ITS ---
Discharge Diet: No Restrictions Discharge Activity: No Restrictions, May Shower Return to work on:: 08/09/18 May shower in (days): 0 - no tub baths 6 wks May resume sexual activity in: 4-6 weeks Call your doctor if your incision/area has: Sudden Increased Bleeding, Increased Pain/ Swelling Call your doctor if you observe: Fever of 101 or Higher, Inability to urinate Additional Instructions: If you experience any of the following, contact your healthcare provider. * Bleeding that soaks a pad every hour for 2 hours * Fever 100.4 or higher * Unrelieved incision or abdominal pain * Swelling, redness, discharge or bleeding from your incision or episiotomy site * Your incision begins to separate * Problems urinating (including inability to urinate or burning while urinating). * Visual changes * Severe headache * Flu-like symptoms * Pain or redness in one of both of your breasts * Pain, warmth, tenderness or swelling in your legs, especially the calf area * Frequent nausea and vomiting * Symptoms of depression or anxiety If you experience any of the following, call 911 or go to the nearest Emergency Room. * Chest pain * Problems breathing * Seizure activity * Partial or complete paralysis of a body part, slurred speech, weakness or drooping of the face, or a sudden inability to walk or hold your balance Allergies/Adverse Reactions: Allergies No Known Allergies Allergy (Verified 03/15/18 14:45) Medications to take at Discharge enoxaparin 40 mg/0.4 mL subcutaneous syringe 40 mg SC DAILY 03/03/18 vitamins no. 112-folate comb.no.6 1 mg chewable tablet 1 tab PO DAILY tab 03/03/18 Folic Acid 0.4 mg PO DAILY@0800 03/08/18 Primary Care Physician: Christiano Zeng MD [Primary Care Provider] - Test Results: Test results from this visit will be discussed in further detail at your follow- up appointment, if applicable. Proposed Discharge Date: 06/25/18
[2018-06-25] MEDS: Folic Acid 1 MG Tablet 0.5 MG PO (08:42)
[2018-06-25 08:45] VITALS: BP 125/67; PULSE 97; RESP 20; TEMP 36.5; O2SAT 96
[2018-06-25] MEDS: Prenatal Vits Tablet 1 TABLET PO (13:33)
[2018-06-25 13:42] VITALS: BP 112/73; PULSE 93; TEMP 36.7; O2SAT 95
== END 2018-06-25 14:45 | disposition home or self-care (01) | DRG 807 ==
PROVIDERS: Admitting Provider Obstetrics & Gynecology Gynecology; Family Provider Family Medicine; PCP Family Medicine; Referring Provider Obstetrics & Gynecology Gynecology; Visit Provider Obstetrics & Gynecology Gynecology
DX: O24.429 Gestational diabetes mellitus in childbirth, unspecified control (principal); O66.0 Obstructed labor due to shoulder dystocia; O36.63X0 Maternal care for excessive fetal growth, third trimester, not applicable or unspecified; O69.81X0 Labor and delivery complicated by cord around neck, without compression, not applicable or unspecified; Z37.0 Single live birth; Z3A.38 38 weeks gestation of pregnancy; Z86.718 Personal history of other venous thrombosis and embolism; Z87.442 Personal history of urinary calculi
CPT/HCPCS: 59050; 82962; 85027; 86850; 86900; 99218; J7120; G0378

== ENCOUNTER → 2018-08-04 09:18 | Outpatient (CLI) | payer OTHER, SELFPAY ==
[2018-08-04 11:58] LABS: Glucose 2 Hour Postprandial 95 mg/dL (<140)
== END ==
PROVIDERS: Family Provider Family Medicine; PCP Family Medicine; Referring Provider Obstetrics & Gynecology Gynecology; Visit Provider Obstetrics & Gynecology Gynecology
DX: Z86.32 Personal history of gestational diabetes (principal)
CPT/HCPCS: 36415; 82950

== ENCOUNTER → 2020-08-02 11:20 | Outpatient (CLI) | payer BC, SELFPAY ==
[2020-08-02 12:41] LABS: Homocysteine 7.3 umol/L (3.2-10.7)
[2020-08-02 12:53] LABS: Vitamin B12 370 pg/mL (211-911)
[2020-08-02 13:29] LABS: Anion Gap 5 (5-15); BUN 11 mg/dL (7-18); BUN/Creat Ratio 13.4 RATIO (10-20); Chloride 105 mmol/L (98-107); Cholesterol 167 mg/dL (200); Creatinine, Serum 0.82 mg/dL (0.55-1.02); EST Glomerular Filtration Rate 81 mL/min (>60); Est Glom Filt Rate - Afr Amer 98 mL/min (>60); Glucose 80 mg/dL (74-106); High Density Lipoprotein 40 mg/dL; Potassium 3.6 mmol/L (3.5-5.1); Sodium Level 136 mmol/L (136-145); Thyroid Stim Hormone (TSH) 1.03 uIU/mL (0.358-3.74); Triglycerides 169 mg/dL; Very Low Density Lipoprotein 34 mg/dL (5-40)
[2020-08-09 16:23] LABS: VITAMIN B6 8.9 ug/L (2.0-32.8)
== END ==
PROVIDERS: PCP Family Medicine; Referring Provider Family Medicine; Visit Provider Family Medicine
DX: I10 Essential (primary) hypertension (principal); E72.12 Methylenetetrahydrofolate reductase deficiency; E04.9 Nontoxic goiter, unspecified
CPT/HCPCS: 36415; 80048; 80061; 82607; 82746; 83090; 84207; 84443

== ENCOUNTER → 2020-08-06 12:16 | Outpatient (CLI) | payer BC, SELFPAY ==
--- NOTE | 2020-08-06 12:27 | US_ITS ---
STUDY: THYROID ULTRASOUND REASON FOR EXAM: Female, 44 years old. Goiter . Thyromegaly. TECHNIQUE: Ultrasound evaluation of the thyroid was performed with real-time and static rosado-scale imaging. COMPARISON: Comparison is made with prior study dated 10/17/2016. FINDINGS: RIGHT LOBE: The right lobe of the thyroid gland is enlarged and measures 5.7 cm x 1.6 cm x 1.6 cm. There is a homogeneous echotexture. A 2 mm x 2 mm x 2 mm cyst in the midpole. LEFT LOBE: The left lobe of the thyroid gland measures 4.6 cm x 1.4 cm x 1.3 cm. There is a homogeneous echotexture. There are no demonstrated solid, cystic or complex lesions. ISTHMUS: The isthmus measures 3 mm. The regional lymph nodes are normal. US/Thyroid IMPRESSION: Enlargement of the right lobe of the thyroid. There is a 2 mm x 2 mm x 2 mm cyst in the midpole of the right lobe. Electronically Signed: Wilder Tejada MD at 15:34 EDT , Service support ,
== END ==
PROVIDERS: PCP Family Medicine; Referring Provider Family Medicine; Visit Provider Family Medicine
DX: E04.9 Nontoxic goiter, unspecified (principal)
CPT/HCPCS: 76536

== ENCOUNTER → 2020-10-11 14:25 | Outpatient (CLI) | payer BC, SELFPAY ==
[2020-10-04 15:43] VITALS: BMI 30.5
--- NOTE | 2020-10-11 14:29 | BI_ITS ---
MAMMOGRAPHY - BILATERAL DIAGNOSTIC REASON FOR EXAM: Female, 44 years old. soft tissue mass axillary tail right breast PERTINENT HISTORY: Non-contributory. TECHNIQUE: Digital examination. Mediolateral oblique (MLO) and craniocaudad (CC) views of both breasts were obtained. CAD: COMPARISON: None. FINDINGS: Breast Composition: Of scattered fibroglandular tissue. No evidence of spiculated lesion, cluster of microcalcifications, skin thickening or nipple retraction. No significant enlarged lymph nodes in the axillary areas on either side. There is more fatty tissue seen in the right axilla. BI/DIAG MAMM W/CAD, BILAT IMPRESSION: Negative digital mammography of malignancy. BIRADS 1 Approximately 10% of breast cancers are not detected by mammography. A normal mammogram should not delay biopsy of a clinically suspicious abnormality. Electronically Signed: Michelle Gale, at 9:50 EDT Tel , Service support ,
--- NOTE | 2020-10-11 14:29 | US_ITS ---
STUDY: ULTRASOUND BREAST - RIGHT REASON FOR EXAM: Female, 44 years old. TECHNIQUE: Axial and longitudinal images of the RIGHT breast were performed with a high resolution ultrasound transducer. # OF IMAGES: 49 COMPARISON: None. FINDINGS: RIGHT Breast: There is no evidence of any masses or cysts are identified in the right axilla however both the bases. The no cystic changes or masses seen within the right breast minimal ductal is noted behind the nipple US/Breast Limited Unilateral IMPRESSION: Negative ultrasound of the right breast and right axilla. ASSESSMENT CATEGORY: Electronically Signed: Michelle Gale, at 9:53 EDT Tel , Service support ,
== END ==
PROVIDERS: PCP Family Medicine; Referring Provider Surgery; Visit Provider Surgery
DX: N63.31 Unspecified lump in axillary tail of the right breast (principal)
CPT/HCPCS: 76641; 76642; 77062; 77066; G0279

== ENCOUNTER 2020-11-26 11:51 | Day surgery (SDC) | payer BC, SELFPAY ==
[2020-10-04 15:43] VITALS: BMI 30.5
--- NOTE | 2020-11-25 18:35 | PCM.HP.BLA ---
History and Physical Date of Admission: 11/26/20 HISTORY OF PRESENT ILLNESS 44 year old woman presents with a soft tissue mass axillary tail right breast/axilla that has been increasing in size over the last several months. She had a baby last year and stopped breast feeding in March,. She states that during breast feeding, there would be an increase in the mass with some intermittent discharge. She denies trauma. She denies fever. She does have a personal history of skin cancer. There is no family history of breast cancer. She had a mammogram on 10/11/20. It showed breast composition shows scattered fibroglandular tissue. No evidence of spiculated lesion, cluster of microcalcifications, skin thickening or nipple retraction. No significant enlarged lymph nodes in the axillary areas on either side. There is more fatty tissue seen in the right axilla. She had an Ultrasound done on 10/11/20. It was a negative ultrasound of the right breast and right axilla. She presents at this time for further evaluation and treatment. PAST MEDICAL HISTORY Bone fracture High blood pressure History of blood clots History of kidney stones Hives Mass of axillary tail of right breast Mass of right axilla Skin cancer PAST SURGICAL HISTORY squamous cell carcinoma excision Mass of soft tissue of right lower extremity ALLERGIES No Known Allergies MEDICATIONS NK FAMILY HISTORY Father - Anesthesia complication, Angina at rest, Asthma, Diabetes, Heart disease, Hypertension, High cholesterol, CVA (cerebral vascular accident) Sister - Depression (emotion) Other - History of blood clots SOCIAL HISTORY Smoking Status: Never smoker alcohol intake: never substance use type: does not use REVIEW OF SYSTEMS General - Denies fever, fatigue, and weight loss. Eyes - Denies cataracts and glaucoma. ENT - Denies nasal congestion and sore throat. Occasional swollen glands in the neck. Endocrine - Denies excessive thirst and urination. Skin - Had squamous cell carcinoma excised in 2018. Has enlarging soft tissue mass axillary tail right breast/axilla. Musculoskeletal - Denies joint pain, joint stiffness, weakness of muscles and joints, back pain, and arthritis. Neuro - Denies headaches. Cardiovascular - Denies chest pain, fatigue, and shortness of breath with exertion. Psych - Denies anxiety and depression. Respiratory - Denies chronic cough and shortness of breath. Gastrointestinal - Denies nausea, vomiting, diarrhea, and constipation. Hematologic - Denies abnormal bruising and bleeding. History of DVT. Has MTHFR. Genitourinary - Denies hematuria and urinary frequency. PHYSICAL EXAMINATION General - Alert and Oriented. HEENT - PERRL. EOMI. Throat is clear. No suspicious lesions noted. Neck - Supple and nontender. No cervical adenopathy. No suspicious lesions noted. Chest wall - No suspicious lesions noted. Breasts - No breast masses palpable. No axillary adenopathy. On the lateral aspect right breast in the axillary tail area is a soft tissue mass that measures 7 x 5 cm. It is nontender. It is mobile. No evidence of accessory nipple. No drainage expressed today. No evidence of infection. No ulceration. Lungs - Clear to auscultation. Heart - Regular rate and rhythm. Abdomen - Soft and nondistended. Extremities - FROM. No axillary adenopathy. Radial pulses are palpable. No suspicious lesions noted. Neuro - CN II-XII grossly intact. Psych - Normal mood and affect. ASSESSMENT 1. 7 cm soft tissue mass axillary tail right breast/axilla. 2. Personal history of skin cancer. 3. History of blood clots with MTHFR mutation. 4. [facility] use of anticoagulation with aspirin. PLAN Recommend excision of this soft tissue mass axillary tail right breast/axilla and send the tissue to Pathology for analysis to rule out carcinoma. She had a mammogram on 10/11/20. It showed breast composition shows scattered fibroglandular tissue. No evidence of spiculated lesion, cluster of microcalcifications, skin thickening or nipple retraction. No significant enlarged lymph nodes in the axillary areas on either side. There is more fatty tissue seen in the right axilla. She had an Ultrasound done on 10/11/20. It was a negative ultrasound of the right breast and right axilla. Depending on the size of the cavity, a drain may be necessary for 7-10 days. Surgery will be done under general anesthesia on an outpatient basis. Patient was informed of the risks and complications of the procedure including alternatives to surgery. These were discussed with the patient personally. Patient voices understanding and wishes to proceed. Some of the risks and complications were included in a form from the [employer]. Potential risks and complications included but not inclusive of bleeding, infection, seroma, hematoma, bruising, swelling, prolonged need for drains, loss of sensation to skin, wound breakdown, need for wound care, poor scarring, poor aesthetic outcome, intra operative cardiac or neurologic events, DVT, PE, and reaction to anesthesia. We discussed the current risks associated with COVID-19. While it is understood that there is a community spread of COVID-19, the risk of adriana COVID-19 while at [facility] ([facility]) is very low; however, the risk cannot be completely mitigated because of the community spread of the disease. We discussed in detail the risk of exposure to and/or potential harm posed by the COVID-19 virus with having a surgery/procedure at this time versus the risk of delaying the surgery/procedure. It is not possible to know either the risk of delaying the surgery or procedure or chance of getting an infection with perfect accuracy, but a joint decision was made to proceed at this time with the scheduled surgery/procedure as indicated on the consent form. Patient was notified that we will need to comply with any screening or testing [facility] wishes to perform or that surgery may be delayed for any positive results.
[2020-11-26 12:28] LABS: Internal QC Validated? YES +Cl - CLEAR BKGD; Pregnancy, Urine Negative Negative
[2020-11-26 12:55] VITALS: BP 137/85; PULSE 74; RESP 16; TEMP 36.8; O2SAT 100; BMI 26.9
[2020-11-26] MEDS: Lactated Ringers 1,000 ML 100 ML IV ×2 (13:03→14:45)
--- NOTE | 2020-11-26 13:25 | TISS_PTH ---
PATIENT: EDEL OLIVER LOC: [facility] [place] U#:[id number] AGE/SX: 44/F ROOM: RE11/26/[address]: Dr. Johnathon Cary MD : 1975 BED: DIS: 11/26/2020 SPEC #: [id number] RECD: 11/27/20 07:07 STATUS: [place] #: [id number] CARTER: 11/26/20 13:[address]: Johnathon Cary DEPT: SURGICAL PATHOLOGY RECD BY: Merari Monzon ENTERED: 11/27/20 12:59 SP TYPE: Tissue Bx ROSY DR: Dr. Mehdi Zeng MD Tissues: Axillary tail of breast Procedures: Surgery Specimen Level V HEADER OPERATION: Excision soft tissue mass, lateral breast/axilla PRE-OP DIAGNOSIS: 7 cm soft tissue mass axillary tail right breast/axilla TISSUE SUBMITTED: Soft tissue mass axillary tail right breast/axilla MICROSCOPIC DIAGNOSIS Soft tissue mass axillary tail right breast/axilla, excisional biopsy: Pieces of fatty benign breast tissue. Negative for atypia or malignancy. SJ:digna 11/29/2020 COMMENT Clinical correlation and appropriate follow up are necessary. Case has been reviewed in consultation with Dr. Kenyon who concurs with the above diagnosis. IDC:AM MICROSCOPIC DESCRIPTION Slides are reviewed. GROSS DESCRIPTION Received in fixative is one container labeled with the patient's name and designated soft tissue mass axillary tail right breast. The specimen consists of two irregular fragments of pike-yellow fibrofatty tissue. The smaller fragment measures 4.5 x 3 x 2 cm and weighs 12 gm. The external surface is inked in black ink and serially sectioned to reveal homogenous yellow cut surfaces without areas of cyst formation, necrosis or masses. The second fragment measures 9 x 6.5 x 2.5 cm and weighs 71 gm. No orientation is provided. An ellipse of light pike skin measuring 4.7 x 1.2 cm is present along one edge. No cutaneous lesions are identified. The specimen is inked in blue ink. Serial sections reveal yellow fatty cut surfaces without areas of cyst formation, necrosis or masses. Field Agent sections from both fragments are submitted in ten cassettes. / AM:digna 11/27/20 TC:5 CPT: 95890
[2020-11-26] MEDS: Cefazolin 2 GM in 0.9% Normal Saline 100 ML IV (13:45)
[2020-11-26] MEDS: Lidocaine 1% /Epi 1:100 (20ml) 20 ML Vial (14:05)
[2020-11-26] MEDS: Mupirocin Ointment 22gm Tube 1 APPLIC (14:38)
--- NOTE | 2020-11-26 15:02 | PCM.OPRPT ---
Problems Associated Problem List Diagnoses (1) Mass of right axilla: (2) Mass of axillary tail of right breast: (3) History of squamous cell carcinoma excision: Report of Operation Date of Procedure: 11/26/20 Pre-Operative Diagnosis: 1. 7 cm soft tissue mass axillary tail right breast/axilla. 2. Personal history of skin cancer. 3. History of blood clots with MTHFR mutation. 4. shelter use of anticoagulation with aspirin. Post-Operative Diagnosis: Same. Surgery/Procedure Performed:: Excision 7 cm soft tissue mass axillary tail right breast/axilla with 5.5 cm layered closure. Description of Surgical Findings:: 44 year old woman presents with a soft tissue mass axillary tail right breast/axilla that has been increasing in size over the last several months. She had a baby last year and stopped breast feeding in March,. She states that during breast feeding, there would be an increase in the mass with some intermittent discharge. She denies trauma. She denies fever. She does have a personal history of skin cancer. There is no family history of breast cancer. She has not had a mammogram. Patient was informed of the risks and complications of the procedure including alternatives to surgery. These were discussed with the patient personally. Patient voices understanding and wishes to proceed. Some of the risks and complications were included in a form from the [employer] [employer]. Potential risks and complications included but not inclusive of bleeding, infection, seroma, hematoma, bruising, swelling, prolonged need for drains, loss of sensation to skin, partial or complete loss of skin flap, wound breakdown, need for wound care, poor scarring, poor aesthetic outcome, intra operative cardiac or neurologic events, DVT, PE, and reaction to anesthesia. I used Garcia absorbable hemostat, (I used 2 vials). Reference Number - [id number]. Lot Number - [id number]. Expiration - September 14, 2025. Surgeon: Johnathon Cary manufacturing engineering director: None Type of Anesthesia: General Specimen's removed: Soft tissue mass axillary tail right breast/axilla to Pathology. Drains: Gabriel. Estimated Blood Loss (mL): 50. Description of Procedure: Patient was taken to OR in supine position and was placed under general anesthesia. The right axilla and lateral breast areas were prepped and draped in the usual fashion. SCD's were placed for DVT prophylaxis. Perioperative antibiotics were given intravenously. Preoperatively, the patient raised her right arm and I was able to ramiro out an oblique ellipse for the excision and leave enough skin for range of motion without tethering. Using xylocaine with epinephrine, the marking was infiltrated. After waiting 5 minutes for the anesthetic to take effect, I made an oblique elliptical incision into the subcutaneous tissue. The fatty mass was seen and was sharply dissected free. It extended down to the lateral edge of the pectoralis and the lateral edge of the latissimus muscle. After excision, the soft tissue mass was then sent to Pathology for analysis to rule out carcinoma. Hemostasis was obtained with electrocautery. The wound was irrigated with saline. I placed a size 15 Gabriel drain through a separate stab incision inferiorly and secured to the skin with 3-0 Nylon suture. I sprayed Garcia absorbable hemostat into the wound to minimize seroma formation postoperatively. I used 2 vials. I then closed the incision in a layered fashion. The deep subcutaneous tissue was approximated with 3-0 Vicryl figure of eight interrupted sutures. The deep dermis and subcutaneous tissue was approximated with 3-0 Monocryl interrupted sutures. The skin was approximated with 4-0 V lock unidirectional barbed running subcuticular suture. This was followed with Histoacryl skin tissue adhesive. A Kerlix gauze dressing was applied followed by ABD pads compression dressing and followed with a compression chichi wrap. The length of the incision was 5.5 cm. Patient tolerated the procedure well and was sent to PACU in satisfactory condition. Patient will be sent home on antibiotics and pain medication. She will keep her right arm elevaed during the initial postoperative period. Patient will followup in a week for a wound check and for discussion of the pathology report. The drain will be removed in 7-10 days based on the drainage. Grafts/Implants Used: Garcia. Complications None. Admit VTE Documentation VTE Present on Admission: No VTE Mechan Device Prophylaxis: SCD's VTE Pharm Prophylaxis ordered?: Yes Addendum Addendum: Surgery Charges CPT - 05686 ICD-10 - R22.31, N63.31, Z85.828
--- NOTE | 2020-11-26 15:07 | PCM.DC ---
Discharge Instructions Diet Discharge Diet: No restrictions and - (encourage nutritional supplementation with protein to help the healing process.) Activity Discharge Activity: May Not Drive (if taking narcotics for pain.), May Not Shower (until the drain is removed in the office.) and - (elevate right arm. No heavy lifting right arm.) May shower in (days): 10 (may shower after the drain is removed in the office.) May resume sexual activity in: 10-14 days Weight Bearing Status: Weight bearing as tolerated Keep extremity elevated above heart level: Right Arm Dressing / Incision Call your doctor if your incision/area has: Continuous Slow Oozing, Sudden Increased Bleeding, Increased Pain/ Swelling, Increased Redness, Foul Smelling Discharge and Swelling at the incision site Call your doctor if you observe: Fever of 101 or Higher, Coldness, Increased Pain, Numbness or Tingling, Shortness of breath, Chest pain, Calf discomfort and Uncontrolled pain Suture Line Care: - (after operative dressing is removed in the office, begin dry dressings daily followed by compression chichi wrap.) Change Dressing in: leave in place till F/U (will remove operative dressing office.) Remove Dressing in: 1 week (I will remove operative dressing in the office.) Cleanse incision/area with: - (may get the incision wet in the shower after the drain is removed.) Drain: Suction (Gabriel drain to bulb suction. Empty and record drainage output daily.) Follow Up Care Please Follow Up With: Johnathon Cary MD When: one week. call [phone] for appt. Test Results: Test results from this visit will be discussed in further detail at your follow-up appointment, if applicable. Discharge Plan Admission Primary Reason for Your Visit: excision right breast mass in axillary tail/axilla. Attending Provider: Johnathon Cary Primary Care Provider: Christiano Zeng Discharge Orders/Prescriptions Prescriptions: New doxycycline hyclate 100 mg capsule 100 mg PO BID 14 Days Qty: 28 RF: 0 oxycodone-acetaminophen [Percocet] 5-325 mg tablet 1 tab PO Q4H PRN (Reason: pain (scale score 7-10)) 7 Days Qty: 40 RF: 0 Referrals / Follow Up: Christiano Zeng MD [Primary Care Provider] - Disposition Disposition (needs filled in before D/C Order can be placed): Home, Self Care
[2020-11-26 15:10] VITALS: BP 137/85; BP 152/89; PULSE 72; RESP 14; TEMP 36; O2SAT 100
[2020-11-26 15:15] VITALS: BP 137/85; BP 156/87; PULSE 58; RESP 14; O2SAT 100
[2020-11-26 15:30] VITALS: BP 137/85; BP 168/83; PULSE 63; RESP 16; O2SAT 100
[2020-11-26 15:42] VITALS: BP 137/85; BP 152/99; PULSE 58; RESP 16; TEMP 36.1; O2SAT 100
[2020-11-26 16:40] VITALS: BP 137/85; BP 152/85; PULSE 62; RESP 16; TEMP 36.2; O2SAT 100
== END 2020-11-26 16:49 | disposition home or self-care (01) ==
LOC: SDC 11:51 → AC 11:53
PROVIDERS: Anesthesiology; PCP Family Medicine; Referring Provider Surgery; Visit Provider Surgery
PROC: (CPT 21552; principal; 2020-11-26 13:10)
DX: N63.31 Unspecified lump in axillary tail of the right breast (principal); Z85.828 Personal history of other malignant neoplasm of skin; Z86.718 Personal history of other venous thrombosis and embolism; Z79.01 Long term (current) use of anticoagulants; Z82.3 Family history of stroke; Z82.49 Family history of ischemic heart disease and other diseases of the circulatory system; Z83.3 Family history of diabetes mellitus; Z87.442 Personal history of urinary calculi; Z83.49 Family history of other endocrine, nutritional and metabolic diseases
CPT/HCPCS: 00300; 21552; 81025; 87426; 88305; 88307; C9803; J7120; J2405

== ENCOUNTER → 2023-09-16 | Outpatient (CLI) | payer BC, OTHER, SELFPAY ==
[2023-09-16 15:37] LABS: Color, Urine Yellow (Yellow); Glucose, Dipstick Normal (Normal); Ketone-Dipstick Negative (Negative); Leukocyte Esterase-Dipstick Negative /ul (Negative); Nitrite-Dipstick Negative (Negative); Occult Blood-Urine Negative /ul (Negative); Protein-Dipstick Negative (Negative); Urine Bilirubin Dipstick Negative (Negative); Urine Clarity Clear (Clear); Urine Urobilinogen Normal (Normal); Urine pH 6.5 (5.0 - 8.0)
[2023-09-16 16:02] LABS: Vitamin B12 1049 pg/mL (211-911)
[2023-09-16 16:03] LABS: Anion Gap 6 (5-15); BUN 9 mg/dL (7-18); BUN/Creat Ratio 12.5 RATIO (10-20); Calcium,Total 9.4 mg/dL (8.5-10.1); Chloride 104 mmol/L (98-107); Cholesterol 202 mg/dL (200); Creatinine, Serum 0.72 mg/dL (0.55-1.02); EST Glomerular Filtration Rate 93 mL/min (>60); Est Glom Filt Rate - Afr Amer 112 mL/min (>60); Glucose 89 mg/dL (74-106); High Density Lipoprotein 42 mg/dL; Potassium 3.7 mmol/L (3.5-5.1); Sodium Level 137 mmol/L (136-145); Thyroid Stim Hormone (TSH) 0.85 uIU/mL (0.358-3.74); Triglycerides 243 mg/dL; Very Low Density Lipoprotein 49 mg/dL (5-40)
[2023-09-16 16:20] LABS: Microalbumin,Random Urine 5.9 mg/L (NO RANGE EST.); Microalbumin:Creatinine Ratio 8.6 mg/g CRE (<30 mg/g CRE)
== END | disposition home or self-care (01) ==
LOC: MTLAB 13:07
PROVIDERS: PCP Family Medicine; Referring Provider Family Medicine; Visit Provider Family Medicine
DX: Z00.00 Encounter for general adult medical examination without abnormal findings (principal); Z13.220 Encounter for screening for lipoid disorders; E53.8 Deficiency of other specified B group vitamins; Z13.29 Encounter for screening for other suspected endocrine disorder; Z13.1 Encounter for screening for diabetes mellitus; I10 Essential (primary) hypertension
CPT/HCPCS: 36415; 80048; 80061; 81002; 82043; 82570; 82607; 84443

== ENCOUNTER 2024-01-21 12:31 | Emergency (ER) | payer BC, OTHER, SELFPAY ==
[2024-01-21 12:32] VITALS: BP 121/84; PULSE 67; RESP 16; TEMP 36.6; O2SAT 100; BMI 26.9
--- NOTE | 2024-01-21 13:14 | EDS_ITS ---
HPI History of Present Illness Chief Complaint: Bite Narrative Narrative: Patient is a 48-year-old female with past medical history of hypertension who presented to the emergency department with a chief complaint of being bit by a raccoon earlier this morning. Patient states that she was plugging in her TV when there was a raccoon behind the stand and it bit her. States that there is no break in the skin. States that the raccoon is outside and notes that this is her second finger on the left hand. States that she cleansed her hand after the incident. States that this was more of a warning sign she states. She states that she went to the family physician today and they noted that the patient should have the rabies vaccine and immunoglobulin series despite no break in her skin. She states that she discussed with her son who is in medical school as well and he was urging her to get this done as well. [facility] Medical History Actinic keratosis of right cheek Neoplasm of skin of abdomen Actinic keratosis Actinic keratosis of forehead History of gestational diabetes Non-smoker DVT (deep venous thrombosis) Mass of right axilla Mass of axillary tail of right breast Skin cancer Hives Bone fracture macrosomia during in third trimester Elderly multigravida in third trimester Gestational diabetes mellitus (GDM) affecting fifth History of kidney stones High blood pressure Home Medications ?Medication ?Instructions ?Recorded ?Last Taken ?Type lisinopril 10 mg tablet 10 mg PO DAILY 07/01/22 Unknown History Allergy/AdvReac Type Severity Reaction Status Date / Time No Known Allergies Allergy Verified 01/21/24 12:31 Family History Father Anesthesia complication Angina at rest Asthma Diabetes Heart disease Hypertension High cholesterol CVA (cerebral vascular accident) Sister Depression (emotion) Other History of blood clots Surgical History History of breast lump/mass excision History of lithotripsy History of squamous cell carcinoma excision Mass of soft tissue of right lower extremity Social History Smoking Status: Never smoker alcohol intake: never substance use type: does not use additional social history: DOES NOT USE ASPIRIN DOES NOT USE IBUPROFEN ROS ROS ED ROS Narrative Constitutional: Denies fevers or chills Cardiovascular: Denies chest pain Neurological: Denies numbness, weakness, tingling Musculoskeletal: Complains of bite to hand as noted above Skin: Denies rashes or lesions EXAM Physical Exam Narrative Exam Narrative: General: Patient lying in bed rest comfortably did not appear to be acute distress Head: Atraumatic, normocephalic Eyes: PERRL bilateral, EOMI bilateral, no conjunctival injection noted Neck: Soft, supple, trachea midline Cardiovascular: Regular rate and rhythm no murmurs gallops rubs noted Extremities: Radial pulses +2/4 in the bilateral extremities, +5/5 strength noted in the bilateral lower extremities Neurological: Patient follow commands knew that she was at [facility] year is 2023 Skin: Patient's second finger on the left hand was evaluated she has no break in the skin noted where she states that she was bit by this raccoon. No lola rounding erythema swelling or purulent discharge noted Const Vital Signs: 01/21/24 12:32 Temperature 97.8 F Temperature Source Oral Pulse Rate 67 Respiratory Rate 16 Blood Pressure 121/84 H Blood Pressure Mean 96 Pulse Ox 100 Oxygen Delivery Method Room Air MDM MDM MDM Narrative Medical decision making narrative: Patient is a 48-year-old female who presents to the emergency department chief complaint of raccoon bite that happened this morning. She states once again that her family physician believes that she needs the rabies vaccine and immunoglobulin series which prompted her here for further evaluation management. Once again there is no break in her skin. The immunoglobulin and the immunization will be ordered and administered here in the emergency department. Patient received her vaccine series and was given the remainder of the dates that she needs to show up for the rest of the series. She is agreeable with this plan she would like to go home she was advised to return with worsening symptoms or concerns. All question concerns answered she is discharged home in stable condition. Discharge Plan Triage Chief Complaint: Bite ED Provider: He Clay Dx/Rx/DC Orders Clinical Impression: Animal bite Prescriptions: No Action lisinopril 10 mg tablet 10 mg PO DAILY Primary Care Provider: Mehdi Zeng Referrals: Mehdi Zeng MD [Primary Care Provider] - Activity Restrictions/Additional Instructions: Return for your vaccine series. Follow-up your primary care physician outpatient setting. Return with worsening symptoms or other concerns Print Language: Paragu[place] Disposition Disposition: Home, Self Care
[2024-01-21] MEDS: Rabies Vaccine,Human Diploid 2.5 UNITS Vial IM (13:33)
[2024-01-21] MEDS: Rabies Immune Globulin/PF 300 UNIT/ML, 5 ML VIAL 1500 UNIT IM (13:34)
[2024-01-21 14:11] VITALS: BP 122/77; PULSE 87; RESP 16; O2SAT 100
== END 2024-01-21 14:12 | disposition home or self-care (01) ==
PROVIDERS: Emergency Provider Emergency Medicine; PCP Family Medicine; Referring Provider Emergency Medicine; Visit Provider Emergency Medicine
DX: S60.471A Other superficial bite of left index finger, initial encounter (principal); I10 Essential (primary) hypertension; Z85.828 Personal history of other malignant neoplasm of skin; Z79.899 Other long term (current) drug therapy; W55.51XA Bitten by raccoon, initial encounter
CPT/HCPCS: 90675; 99282; 90375

== ENCOUNTER 2024-01-24 08:48 | Outpatient (CLI) | payer BC, OTHER, SELFPAY ==
[2024-01-24 08:48] VITALS: BP 129/67; PULSE 65; RESP 14; O2SAT 100
[2024-01-24] MEDS: Rabies Vaccine,Human Diploid 2.5 UNITS Vial IM (09:29)
--- NOTE | 2024-01-24 09:31 | ED.RN ---
INDIVIDUAL WITH PT FRUSTRATED, HOW MUCH LONGER BEFORE SHE GETS HER SHOT? EXPLAINED THE VACCINE HAD TO COME FROM PHARMACY. INDIVIDUAL SHE FRUSTRATED BECAUSE WE DO NOT KEEP THE VACCINE IN THE EMERGENCY DEPARTMENT,
[2024-01-24 09:38] VITALS: BP 121/81; PULSE 60; RESP 14; TEMP 36.6; O2SAT 98
== END 2024-01-24 09:59 | disposition home or self-care (01) ==
PROVIDERS: PCP Family Medicine
DX: Z23 Encounter for immunization (principal)
CPT/HCPCS: 90675; 96372

== ENCOUNTER 2024-01-28 05:50 | Outpatient (CLI) | payer BC, OTHER, SELFPAY ==
[2024-01-28 05:51] VITALS: BP 117/88; PULSE 78; RESP 16; TEMP 36.2; O2SAT 95
[2024-01-28 06:04] VITALS: BP 117/88; PULSE 75; RESP 16; O2SAT 95; BMI 26.9
[2024-01-28] MEDS: Rabies Vaccine,Human Diploid 2.5 UNITS Vial IM (06:06)
[2024-01-28 06:29] VITALS: BP 117/88; PULSE 78; RESP 16; TEMP 36.2; O2SAT 95
== END 2024-01-28 06:32 | disposition home or self-care (01) ==
PROVIDERS: PCP Family Medicine; Visit Provider Emergency Medicine
DX: Z29.14 Encounter for prophylactic rabies immune globulin (principal); Z23 Encounter for immunization
CPT/HCPCS: 90471; 90675

== ENCOUNTER → 2024-02-04 | Outpatient (CLI) | payer BC, OTHER, SELFPAY ==
[2024-02-04 05:09] VITALS: BP 114/74; PULSE 82; RESP 16; TEMP 36.6; O2SAT 98
[2024-02-04] MEDS: Rabies Vaccine,Human Diploid 2.5 UNITS Vial IM (05:22)
[2024-02-04 05:25] VITALS: BP 114/65; BP 114/74; PULSE 72; PULSE 79; RESP 16; RESP 17; TEMP 36.6; O2SAT 98; BMI 27.0
== END | disposition home or self-care (01) ==
PROVIDERS: PCP Family Medicine
DX: Z23 Encounter for immunization (principal)
CPT/HCPCS: 90675; 96372

== ENCOUNTER → 2024-02-22 | Outpatient (CLI) | payer BC, OTHER, SELFPAY ==
--- NOTE | 2024-02-22 14:55 | RAD_ITS ---
STUDY: X-RAY CHEST REASON FOR EXAM: Female, 48 years old. Cough TECHNIQUE: PA and lateral views of the chest. COMPARISON: None. FINDINGS: The lungs are clear and expanded. There is no demonstrated pleural abnormality. Normal size heart. Normal mediastinum and tricia. Normal visualized pulmonary arteries. Normal visualized aortic arch and descending thoracic aorta. Normal visualized thoracic spine. Normal visualized ribs, clavicles, and shoulders. There is no demonstrated abnormality of the visualized soft tissue structures of the upper abdomen. RAD/Chest PA and Lateral IMPRESSION: Normal x-ray examination of the chest. Electronically Signed: Wilder Tejada MD at 15:33 EST ,
== END | disposition home or self-care (01) ==
PROVIDERS: PCP Family Medicine; Referring Provider Physician Assistant; Visit Provider Physician Assistant
DX: R05.9 Cough, unspecified (principal)
CPT/HCPCS: 71046

== ENCOUNTER → 2024-08-02 | Outpatient (CLI) | payer BC, OTHER, SELFPAY ==
[2024-08-02 11:37] LABS: Anion Gap 12 (5-15); BUN 12 mg/dL (4-19); BUN/Creat Ratio 15.3 RATIO (10-20); Calcium,Total 9.8 mg/dL (7.6-11.0); Carbon Dioxide 19.6 mmol/L (21.0-32.0); Chloride 106 mmol/L (98-108); Cholesterol 173 mg/dL (<=200); Creatinine, Serum 0.78 mg/dL (0.70-1.20); EST Glomerular Filtration Rate 94 (>60); Glucose 94 mg/dL (70-99); High Density Lipoprotein 41 mg/dL; Low Density Lipoprotein Calc. 103 mg/dL; Potassium 4.3 mmol/L (3.3-5.1); Sodium Level 137 mmol/L (133-145); Triglycerides 144 mg/dL; Very Low Density Lipoprotein 29 mg/dL (5-40); Vitamin B12 502 pg/mL (180-914)
== END | disposition home or self-care (01) ==
LOC: MFPLAB 08:27
PROVIDERS: PCP Family Medicine; Visit Provider Family Medicine
DX: I10 Essential (primary) hypertension (principal)
CPT/HCPCS: 36415; 80048; 80061; 82607

== ENCOUNTER → 2024-10-04 | Outpatient (CLI) | payer BC, OTHER, SELFPAY ==
--- NOTE | 2024-10-04 06:58 | BI_ITS ---
EXAM: SCRN MAMM (CAD)W/ADITYA BILAT DATE: 10/04/2024 CLINICAL HISTORY: F, Age 48 y/o , SCREENING No family history. BREAST CANCER RISK ASSESSMENT: Not assessed. TECHNIQUE: Bilateral screening digital breast tomosynthesis with 2D and 3D images. Computer aided detection. COMPARISON: Prior exam(s) dated October 11, 2020.. FINDINGS: TISSUE DENSITY: The breast tissue is heterogeneously dense, which may obscure small masses. Bilateral Breast Mammographic Findings: No significant masses, calcifications or other abnormalities are identified. No suspicious masses, areas of developing architectural distortion, or suspicious calcifications. There has been no significant interval change. BI/SCRN MAMM (CAD)W/ADITYA BILAT IMPRESSION: Stable examination. OVERALL FINAL ASSESSMENT BI-RADS 1: NEGATIVE. RECOMMEND ANNUAL MAMMOGRAPHIC SCREENING. RECOMMENDATION: Routine annual follow-up in 1 Year A letter with findings and recommendations will be mailed to the patient. Reading Location: [place] [id number]
--- OUTSIDE RECORDS SUMMARY | 2024-10-04 06:59 | XMS RPT_ITS | CCD ---
Author Organization [facility] Care Team Providers Care Gym Supervisor Name Role Phone RONY TO Attending Unavailable PHYSICIAN, NONE Primary Care Unavailable RONY TO Attending Unavailable PHYSICIAN, NONE Primary Care Unavailable LATESHA LEDESMA Attending Unavailable PHYSICIAN, NONE Primary Care Unavailable Karri IBARRA, Dr. Harding Primary Care Provider Dr. Mehdi Zeng MD Attending Provider Mehdi Zeng Primary Care Unavailable He Clay Attending Unavailable He Clay Referring Unavailable Provider, Ed Physician Attending Unavailab Mehdi Das Primary Care Unavailable Boris Natarajan Attending Unavailable Mehdi Zeng Referring Unavailable Mehdi Zeng Primary Care Unavailable Mehdi Zeng Primary Care Unavailable He Clay Attending Unavailable Provider, Ed Physician Attending UnavailMehdi Arce Primary Care Unavailable Mehdi Zeng Attending Unavailable Mehdi Zeng Referring Unavailable Mehdi Zeng Primary Care Unavailable Boris Natarajan Attending Unavailable Boris Natarajan Referring Unavailable Mehdi Zeng Primary Care Unavailable Mehdi Zeng Attending Unavailable Mehdi Zeng Primary Care Unavailable Medications Current Medications Medication Drug Class(es) Dates Sig (Normalized) Sig (Original) azithromycin 250 mg oral tablet (1 source) Macrolide Antimicrobial Start: 02-22-2024 Azithromycin 250 mg tablet Active 0 PO .COMPLEX February 22, 2024 1:00am For 250 mg dose pack: take 500 mg today (day 1), then 250 mg for 4 days (days 2-5) PO benzonatate 200 mg oral capsule (1 source) Non-narcotic Antitussive Start: 02-22-2024 take 1 capsule by mouth three times daily as needed for cough Benzonatate 200 mg capsule Active 200 mg PO THREE TIMES A DAY as needed for cough February 22, 2024 1:00am lisinopril 10 mg oral tablet (2 sources) Angiotensin Converting Enzyme Inhibitor Start: 07-01-2022 take 1 tablet by mouth once daily Lisinopril 10 mg tablet Active 10 mg PO DAILY July 01, 2022 12:00am Start: 11-28-2016 End: 03-03-2018 take 1 tablet by mouth once daily Lisinopril 10 MG tablet Discontinued 10 mg PO DAILY November 28, 2016 12:00am March 03, 2018 2:51pm Completed/Discontinued Medications Medication Drug Class(es) Dates Sig (Normalized) Sig (Original) acetaminophen 300 mg / codeine phosphate 30 mg oral tablet (1 source) Opioid Agonist Start: 03-08-2018 End: 03-12-2018 Acetaminophen-Code ine 1 TABLET tablet Discontinued 1 {tbl} PO 4 TIMES DAILY NEEDED as needed for Pain 15 March 08, 2018 4:07pm March 11, 2018 1:00am March 12, 2018 1:12am acetaminophen 325 mg / HYDROcodone bitartrate 5 mg oral tablet (1 source) Opioid Agonist Start: 11-28-2016 End: 03-03-2018 Hydrocodone-Acetam inophen 1 TABLET tablet Discontinued 1 - 2 {tbl} PO EVERY 4 HOURS NEEDED as needed for Pain November 28, 2016 12:00am March 03, 2018 2:50pm acetaminophen 325 mg / oxyCODONE hydrochloride 5 mg oral tablet (1 source) Opioid Agonist Start: 11-26-2020 End: 05-07-2021 Oxycodone-Acetamin ophen (Percocet) 5-325 mg tablet Discontinued 1 {tbl} PO Q4H as needed for pain (scale score 7-10) 40 7 November 26, 2020 May 07, 2021 2:49pm 40 tabs (forty) docusate sodium 50 mg / sennosides, long-term 8.6 mg oral tablet (1 source) Start: 06-25-2018 End: 08-23-2020 take 1 tablet by mouth once daily as needed Sennosides-Docusat e Sodium (Stool Softener-Stimulant Laxat) 1 TABLET tablet Discontinued 1 - 2 {tbl} PO DAILY NEEDED as needed for Constipation June 25, 2018 1:00am August 23, 2020 12:54pm doxycycline hyclate 100 mg oral capsule (1 source) Tetracycline-class Drug Start: 11-26-2020 End: 12-18-2020 take 1 capsule by mouth twice daily Doxycycline Hyclate 100 mg capsule Discontinued 100 mg PO TWICE A DAY November 26, 2020 12:00am December 18, 2020 8:29am 0.4 ml enoxaparin sodium 100 mg/ml prefilled syringe (1 source) Low Molecular Weight Heparin Start: 03-03-2018 End: 08-23-2020 Enoxaparin 40 mg/0.4 mL syringe Discontinued 40 mg SC DAILY March 03, 2018 1:00am August 23, 2020 12:54pm folic acid 0.4 mg oral tablet (1 source) Start: 03-08-2018 End: 06-25-2018 take 1 tablet by mouth once daily Folic Acid 0.4 MG tablet Discontinued 0.4 mg PO DAILY@0800 March 08, 2018 1:00am June 25, 2018 8:41am ibuprofen 600 mg oral tablet (1 source) Nonsteroidal Anti-inflammatory Drug Start: 06-25-2018 End: 08-23-2020 take 1 tablet by mouth every six hours as needed for pain Ibuprofen 600 MG tablet Discontinued 600 mg PO EVERY 6 HOURS NEEDED as needed for Mod-Severe Pain (4-10/10) June 25, 2018 1:00am August 23, 2020 12:54pm imiquimod 50 mg/ml topical cream (1 source) Start: 12-18-2020 End: 01-29-2021 Imiquimod (Aldara) 5 % cream in packet Discontinued 4 mmol TOPICAL 5 times per week December 18, 2020 12:00am January 28, 2021 12:00am January 29, 2021 12:01am apply once daily Thursday through Thursday before bedtime Multivitamin No.36-Folate No.6 1 mg tablet,chewable (1 source) Start: 03-03-2018 End: 08-23-2020 take 1 tablet by mouth once daily Multivitamin No.36-Folate No.6 1 mg tablet,chewable Discontinued 1 {tbl} PO DAILY March 03, 2018 1:00am May 6th, 2021 12:54pm naproxen 500 mg oral tablet (1 source) Nonsteroidal Anti-inflammatory Drug Start: 11-28-2016 End: 03-03-2018 take 1 tablet by mouth twice daily as needed Naproxen 500 MG tablet Discontinued 500 mg PO TWICE DAILY NEEDED November 28, 2016 12:00am March 03, 2018 2:51pm ondansetron 4 mg disintegrating oral tablet (1 source) Serotonin-3 Receptor Antagonist Start: 11-28-2016 End: 03-03-2018 take 1 tablet by mouth every eight hours as needed for nausea Ondansetron 4 MG tablet Discontinued 4 mg PO EVERY 8 HOURS NEEDED as needed for Nausea November 28, 2016 12:00am March 03, 2018 2:51pm Problems Active Problems Problem Classification Problem Date Documented Da te Episodic/Chronic Allergic reactions (1 source) Solar degeneration; Translations: [Other skin changes due to chronic exposure to nonionizing radiation] 07-03-2022 Episodic Diabetes or abnormal glucose tolerance complicating ; childbirth; or the puerperium (1 source) Gestational diabetes mellitus complicating ; Translations: [Gestational diabetes mellitus in , unspecified control] 06-06-2021 Episodic Essential hypertension (1 source) Essential (primary) hypertension; Translations: [Essential (primary) hypertension] Onset: 08-05-2024 Chronic Neoplasms of unspecified nature or uncertain behavior (1 source) Neoplasm of skin of abdomen; Translations: [Neoplasm of unspecified behavior of bone, soft tissue, and skin] 01-09-2022 Episodic Comment on above: 5 mm pigmented lesio n epigastric area Nonmalignant breast conditions (1 source) Lump of axillary tail of breast; Translations: [Unspecified lump in axillary tail of the right breast] 10-06-2020 Episodic Other aftercare (1 source) Long-term current use of anticoagulant; Translations: [care home (current) use of anticoagulants] 03-07-2018 Episodic Other complications of (1 source) Multigravida of advanced maternal age; Translations: [Supervision of elderly multigravida, third trimester] 06-06-2021 Episodic Other complications of (1 source) Suspected macroscopic fetus; Translations: [Maternal care for excessive growth, third trimester, not applicable or unspecified] 06-06-2021 Episodic Other complications of (2 sources) Supervision of elderly multigravida, third trimester; Translations: [Supervision of elderly multigravida, third trimester] Onset: 06-09-2018 Other injuries and conditions due to external causes (1 source) Other injury of unspecified body region, initial encounter; Translations: [Bite by animal] 01-29-2024 Episodic Other nervous system disorders (1 source) Acute postoperative pain; Translations: [Other acute postprocedural pain] 11-26-2020 Episodic Other non-epithelial cancer of skin (2 sources) Squamous cell carcinoma of skin of trunk; Translations: [Squamous cell carcinoma of skin of breast] 03-07-2018 Episodic Comment on above: 8 mm invasive squamo us cell carcinoma left upper chest wall just superior to her breast Other and delivery including normal (1 source) ; Translations: [Encounter for supervision of normal , unspecified, unspecified trimester] 06-06-2021 Episodic Other skin disorders (1 source) Benign neoplasm of skin of forehead; Translations: [Actinic keratosis] 05-09-2021 Episodic Other skin disorders (1 source) Actinic keratosis; Translations: [Actinic keratosis] 07-03-2022 Episodic Other skin disorders (1 source) Benign neoplasm of skin of cheek; Translations: [Actinic keratosis] 07-03-2022 Episodic Comment on above: right upper lateral chest wall Other skin disorders (1 source) Localized swelling, mass and lump, right upper limb; Translations: [Mass of right axilla] 10-06-2020 Episodic Comment on above: 7 cm mass axillary t ail right breast/axilla Phlebitis; thrombophlebitis and thromboembolism (1 source) H/O: thrombosis; Translations: [Personal history of other venous thrombosis and embolism] 03-07-2018 Episodic Residual codes; unclassified (1 source) Other specified postprocedural states; Translations: [History of lumpectomy] 06-08-2021 Episodic Comment on above: excision 7 cm soft t issue mass axillary tail right breast/axilla with 5.5 cm layered closure - 11/26/20 Unclassified (1 source) Cough, unspecified; Translations: [Cough, unspecified] Onset: 03-14-2024 Past or Other Problems Problem Classification Problem Date Documented Da te Episodic/Chronic Immunizations and screening for infectious disease (2 sources) Encounter for immunization; Translations: [Encounter for prophylactic rabies immune globin] Onset: 02-17-2024 Episodic Superficial injury; contusion (1 source) Other superficial bite of left index finger, initial encounter; Translations: [Other superficial bite of left index finger, initial encounter] Onset: 02-12-2024 Episodic Results Test Name Value Interpretation Reference Range Facility Anion gap in Serum or Plasma Ordered By: Mehdi Zeng on 08-02-2024 Anion gap [Moles/Vol] 12 mmol/L 09-01 [facility] BUN/creatinine ratioOrdered By: Mehdi Zeng on 08-02-2024 Urea nitrogen/Creatinine [Mass ratio] 15.3 mg/mg 02-06 [facility] Basic Metabolic Profile (BMP )on 08-02-2024 BUN/CRE 15.3 RATIO Normal 02-06 [facility] Comment on above: Order Comment: Order Date: 08/01/24 Order Info: 0667-1 - BMP Order Info: [id number] - LIPID Performed By: #### L 500.4100, L500.2500 #### [facility] [address] [place], [address] Calcium [Mass/Vol] 9.8 mg/dL Normal 7.6-11.0 [facility] Comment on above: Order Comment: Order Date: 08/01/24 Order Info: 0667-1 - BMP Order Info: [id number] - LIPID Performed By: #### L 500.4100, L500.2500 #### [facility] [address] [place], [address] Chloride [Moles/Vol] 106 mmol/L Normal 98-[address] [facility] Comment on above: Order Comment: Order Date: 08/01/24 Order Info: 0667-1 - BMP Order Info: [id number] - LIPID Performed By: #### L 500.4100, L500.2500 #### [facility] [address] [place], [address] CO2 [Moles/Vol] 19.6 mmol/L Low 21.0-32.0 [facility] Comment on above: Order Comment: Order Date: 08/01/24 Order Info: 0667-1 - BMP Order Info: [id number] - LIPID Performed By: #### L 500.4100, L500.2500 #### [facility] [address] [place], [address] Creatinine [Mass/Vol] 0.78 mg/dL Normal 0.70-1.20 [facility] Comment on above: Order Comment: Order Date: 08/01/24 Order Info: 0667- - BMP Order Info: [id number] - LIPID Performed By: #### L 500.4100, L500.2500 #### [facility] [address] [place], [address] GAP 12 Normal 5-15 [facility] Comment on above: Order Comment: Order Date: 08/01/24 Order Info: 0667- - BMP Order Info: [id number] - LIPID Performed By: #### L 500.4100, L500.2500 #### [facility] [address] [place], [address] GFR/1.73 sq M.predicted among non-blacks MDRD (S/P/Bld) [Vol rate/Area] 94 mL/min/{1.73_m2} Normal >60 [facility] Comment on above: Order Comment: Order Date: 08/01/24 Order Info: 0667- - BMP Order Info: [id number] - LIPID Result Comment: mL/m in/1.73m2 CKD-EPI Creatinine Equation (2020) Performed By: #### L 500.4100, L500.2500 #### [facility] [address] [place], [address] Glucose [Mass/Vol] 94 mg/dL Normal 70-99 [facility] Comment on above: Order Comment: Order Date: 08/01/24 Order Info: 0667-1 - BMP Order Info: [id number] - LIPID Performed By: #### L 500.4100, L500.2500 #### [facility] [address] [place], [address] Potassium [Moles/Vol] 4.3 mmol/L Normal 3.3-5.1 [facility] Comment on above: Order Comment: Order Date: 08/01/24 Order Info: 0667-1 - [facility] Order Info: [id number] - LIPID Performed By: #### L 500.4100, L500.2500 #### [facility] [address] [place], [address] Sodium [Moles/Vol] 137 mmol/L Normal 133-145 [facility] Comment on above: Order Comment: Order Date: 08/01/24 Order Info: 06- - [facility] Order Info: [id number] - LIPID Performed By: #### L 500.4100, L500.2500 #### [facility] [address] [place], [address] Urea nitrogen [Mass/Vol] 12 mg/dL Normal 4-19 [facility] Comment on above: Order Comment: Order Date: 08/01/24 Order Info: 0667- - [facility] Order Info: [id number] - LIPID Performed By: #### L 500.4100, L500.2500 #### [facility] [address] [place], [address] Calculated very low density lipoprotein (VLDL) cholesterol measurementOrdered By: Mehdi Zeng on 08-02-2024 VLDL Cholesterol 29 mg/dL 5-40 [facility] Carbon dioxide, total [Moles /volume] in Central venous bloodOrdered By: Mehdi Zeng on 08-02-2024 CO2 [Moles/Vol] 19.6 mmol/L Low 21.0-32.0 [facility] Chloride assayOrdered By: Maral Zeng on 08-02-2024 Chloride [Moles/Vol] 106 mmol/L 98-[address] [facility] GFR/1.73 sq M.predicted christiane g non-blacks MDRD (S/P/Bld) [Vol rate/Area]Ordered By: Mehdi Zeng on 08-02-2024 Estimated GFR (MDRD) Non-Af Amer 94 >60 [facility] Comment on above: mL/min/1.73m2 CKD-EP I Creatinine Equation (2020) LDL calc ser/plasOrdered By: Mehdi Zeng on 08-02-2024 LDL Cholesterol, Calculated 103 mg/dL [facility] Comment on above: Bidcqcawce=815-939 m g/dL & Higher Wjje=206 mg/dL or greater Lipid Profileon 08-02-2024 CHOL:HDL 4.20 Normal [facility] Comment on above: Order Comment: Order Date: 08/01/24 Order Info: 0667-1 - BMP Order Info: [id number] - LIPID Performed By: #### L 500.4100, L500.2500 #### [facility] [address] [place], [place], [id number] Cholesterol [Mass/Vol] 173 mg/dL Normal <=200 [facility] Comment on above: Order Comment: Order Date: 08/01/24 Order Info: 0667-1 - BMP Order Info: [id number] - LIPID Result Comment: Chol esterol level, Desirable <200 mg/dL Borderline high cholesterol 200-239 mg/dL High cholesterol >=240 mg/dL Recommendations of the NCEP Adult Treatment Panel for the following risk-cutoff thresholds for the [place] population. Performed By: #### L 500.4100, L500.2500 #### [facility] [address] [place], [address] Cholesterol in HDL [Mass/Vol] 41 mg/dL Normal [facility] Comment on above: Order Comment: Order Date: 08/01/24 Order Info: 0667-1 - BMP Order Info: [id number] - LIPID Result Comment: Jenise onal Cholesterol Education Program (NCEP) guidelines: <40 mg/dL: Low HDL-cholesterol (major risk factor for CHD) >= 60 mg/dL: High HDL-cholesterol (negative risk factor for CHD) HDL-cholesterol is affected by a number of factors, e.g. smoking, exercise, hormones, sex and age. Performed By: #### L 500.4100, L500.2500 #### [facility] [address] [place], [address] Cholesterol in LDL [Mass/Vol] 103 mg/dL Normal [facility] Comment on above: Order Comment: Order Date: 08/01/24 Order Info: 0667-1 - [facility] Order Info: [id number] - LIPID Result Comment: Bord idlnsw=872-143 mg/dL Higher Azil=192 mg/dL or greater Performed By: #### L 500.4100, L500.2500 #### [facility] [address] [place], [address] Cholesterol in VLDL [Mass/Vol] 29 mg/dL Normal 5-40 [facility] Comment on above: Order Comment: Order Date: 08/01/24 Order Info: 0667-1 - BMP Order Info: [id number] - LIPID Performed By: #### L 500.4100, L500.2500 #### [facility] [address] [place], [address] Triglyceride [Mass/Vol] 144 mg/dL Normal [facility] Comment on above: Order Comment: Order Date: 08/01/24 Order Info: [id number] - [facility] Order Info: [id number] - LIPID Result Comment: The drugs N-Acetylcysteine and Metamizole may falsely depress this assay. Normal range: <150 mg/dL Borderline High: 150-199 mg/dL High: 200-499 mg/dL Very High: >500 mg/dL Performed By: #### L 500.4100, L500.2500 #### [facility] [address] [place], [address] Potassium (Unsp spec) [Mass/ Vol]Ordered By: Mehdi Zeng on 08-02-2024 Potassium [Moles/Vol] 4.3 mmol/L 3.3-5.1 [facility] Screening total cholesterol/ high density lipoprotein (HDL) cholesterol ratioOrdered By: Mehdi Zeng on 08-02-2024 Cholesterol.total/Chasity sterol in HDL [Mass ratio] 4.20 {ratio} [facility] Serum creatinine measurement (mass/volume)Ordered By: Mehdi Zeng on 08-02-2024 Creatinine [Mass/Vol] 0.78 mg/dL 0.70-1.20 [facility] Serum glucose measurement (m ass/volume)Ordered By: Mehdi Zeng on 08-02-2024 Glucose [Mass/Vol] 94 mg/dL 70-99 [facility] Serum or plasma calcium amita urement (mass/volume)Ordered By: Mehdi Zeng on 08-02-2024 Calcium [Mass/Vol] 9.8 mg/dL 7.6-11.0 [facility] Serum or plasma cholesterol in HDL measurement (mass/volume)Ordered By: Mehdi Zeng on 08-02-2024 Cholesterol in HDL [Mass/Vol] 41 mg/dL >40 [facility] Comment on above: National Cholesterol Education Program (NCEP) guidelines:<40 mg/dL: Low HDL-cholesterol (major risk factor for CHD)>= 60 mg/dL: High HDL-cholesterol (negative risk factor for CHD)HDL-cholesterol is affected by a number of factors, e.g. smoking, exercise, hormones, sex and age. Serum or plasma cholesterol measurement (mass/volume)Ordered By: Mehdi Zeng on 08-02-2024 Cholesterol [Mass/Vol] 173 mg/dL <201 [facility] Comment on above: Cholesterol level, D esirable <200 mg/dLBorderline high cholesterol 200-239 mg/dLHigh cholesterol >=240 mg/dLRecommendations of the NCEP Adult Treatment Panel for the following risk-cutoff thresholds for the [place] population. Serum or plasma urea nitroge n measurement (mass/volume)Ordered By: Mehdi Zeng on 08-02-2024 Urea nitrogen [Mass/Vol] 12 mg/dL 4-19 [facility] Sodium levelOrdered By: Farooq Zeng on 08-02-2024 Sodium [Moles/Vol] 137 mmol/L 133-145 [facility] Triglycerides measurementOrd ered By: Mehdi Zeng on 08-02-2024 Triglyceride [Mass/Vol] 144 mg/dL <199 [facility] Comment on above: The drugs N-Acetylcy steine and Metamizole may falsely depress this assay. Normal range: <150 mg/dLBorderline High: 150-199 mg/dLHigh: 200-499 mg/dLVery High: >500 mg/dL Vitamin B12on 08-02-2024 Cobalamin (Vitamin B12) [Mass/Vol] 502 pg/mL Normal 180-914 [facility] Comment on above: Order Comment: Order Date: 08/01/24 Order Info: 0667-1 - BMP Order Info: [id number] - LIPID Performed By: #### L 503.0106 #### [facility] [address] [place], [place], [address] Vitamin B12 ser/plasOrdered By: Mehdi Zeng on 08-02-2024 Cobalamin (Vitamin B12) [Mass/Vol] 502 pg/mL 180-914 [facility] Chest PA and Lateralon 02-21 Chest PA and Lateral [facility] Services [address] [place] [address] Chest PA and Lateral MR#: [id number] Acct: [id number] Name: EDEL OLIVER Rep #: [id number] : 1975 F 48 From: Wilder de la torre MD PCP: Dr. Mehdi Zeng MD Status: [facility] Study: Chest PA and Lateral Date of Exam: 02/22/24 Exam# [id number] Ordering Dr: Boris Araujo PA [place] [id number] STUDY: X-RAY CHEST REASON FOR EXAM: Female, 48 years old. Cough TECHNIQUE: PA and lateral views of the chest. COMPARISON: None. FINDINGS: The lungs are clear and expanded. There is no demonstrated pleural abnormality. Normal size heart. Normal mediastinum and tricia. Normal visualized pulmonary arteries. Normal visualized aortic arch and descending thoracic aorta. Normal visualized thoracic spine. Normal visualized ribs, clavicles, and shoulders. There is no demonstrated abnormality of the visualized soft tissue structures of the upper abdomen. RAD/Chest PA and Lateral IMPRESSION: Normal x-ray examination of the chest. Electronically Signed: Wilder Tejada MD at 15:33 EST , CC: Dr. Mehdi Zeng MD; JERI Baires Central Supply Technician: Signed Normal [facility] Urgent Care Visit Reporton 1 04-23-2023 Urgent Care Visit Report [facility] [address], [address] [place], [place] [address] OFFICE VISIT Date of Service: 02/22/24 MR#: [id number] Acct: [id number] Name: EDEL OLIVER Rep #: [id number] : 1975 Provider: JERI Baires Age/Sex: 48/F Location: [email or web address] Status: Signed Intake Vital Signs 02/04/24 05:25 02/22/24 14:51 Height 5 ft 6 in 5 ft 7 in Weight: 160 lb BMI 25.0 BP 128/86 H Blood Pressure Location Lt brachial Position Sitting Respiration 16 Pulse 125 H Pulse Source Monitor Temp 97.8 F Temp Source Oral Pulse Oximetry (%) 98 Oxygen Delivery Method room air Intake Visit Reasons: COUGH/CHEST CONGESTION/SHORT OR BREATH Chief Complaint: COUGH 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 Accompanied by: Self Is patient in pain?: No Allergies No Known Allergies Allergy (Verified 02/22/24 14:52) Medications ???Medication ???Instructions ???Recorded ???Confirmed ???Type lisinopril 10 mg tablet 10 mg PO DAILY 07/01/22 02/22/24 History azithromycin 250 mg tablet See Rx Instructions PO .COMPLEX #6 02/22/24 02/22/24 Rx tabs benzonatate 200 mg capsule 200 mg PO TID PRN cough #20 caps 02/22/24 02/22/24 Rx PFSH Medical History Actinic keratosis of right cheek Neoplasm of skin of abdomen Actinic keratosis Actinic keratosis of forehead History of gestational diabetes Non-smoker DVT (deep venous thrombosis) Mass of right axilla Mass of axillary tail of right breast Skin cancer Hives Bone fracture macrosomia during in third trimester Elderly multigravida in third trimester Gestational diabetes mellitus (GDM) affecting fifth History of kidney stones High blood pressure Surgical History History of breast lump/mass excision History of lithotripsy History of squamous cell carcinoma excision Mass of soft tissue of right lower extremity Family History Father Anesthesia complication Angina at rest Asthma Diabetes Heart disease Hypertension High cholesterol CVA (cerebral vascular accident) Sister Depression (emotion) Other History of blood clots Social History Smoking Status: Never smoker alcohol intake: never substance use type: does not use additional social history: DOES NOT USE ASPIRIN DOES NOT USE IBUPROFEN HPI HPI Chief Complaint: COUGH CHEST CONGESTION SOB Details: EDEL OLIVER, is a 48 F who presents to the office today for initial evaluation approximately 4-5 day history of progressively worsening moist nonproductive cough and chest congestion. No complaints of sweats or rash or chest pressure or shortness of breath or dyspnea on exertion. Non-smoker. No [id number] products taken to assist. 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 No other associated symptoms and no other alleviating or aggravating factors. ROS Const Constitutional: No other (As above) Exam Const General: cooperative, healthy appearing and no acute distress Nutritional Appearance: average body habitus Orientation: alert and awake [facility] Head: normal to inspection Ears: hearing grossly normal bilaterally, external ears normal, TM's normal bilaterally and EAC's normal Nose: external nose normal, nares normal, septum normal and no nasal discharge Face and sinus: normal facial exam, sinuses nontender and face symmetric Mouth: oral mucosae normal, lip normal, tongue normal and oropharynx normal Throat: posterior oropharynx normal, tonsils normal, uvula midline and no postnasal drainage Eyes General: appearance normal, both eyes and all related structures Neck Neck: normal visual inspection, full ROM, no lymphadenopathy, no meningeal signs and supple Neck mass: No Thyroid: thyroid normal Lymphatic: no lymphadenopathy noted Chest Chest palpation inspection: normal inspection of the chest Resp Effort Inspection: normal respiratory effort and able to speak in complete sentences Auscultation: Bilateral: Clear to Auscultation (With wet nonproductive cough) Cardio Palpation: normal PMI Rate: regular rate Rhythm: regular rhythm Heart Sounds: S1 normal, S2 normal, no gallops, no murmurs and no rubs Pulses: radial pulses present GI Inspection: normal to inspection Skin General: no rashes or lesions noted Neuro General: patient alert, patient awake and patient oriented x3 Cognition: normal cognition Speech: speech normal Psych Appearance: grossly normal Mental Status: mental status grossly normal Mood: congruent mood Aff (more content not included)... Normal [facility] Emergency Department Summary on 01-21-2024 Emergency Department Summary [facility] Medical Records Department [address] [place] [id number] Emergency Department Summary 01/21/24 MR#: [id number] Acct: [id number] Name: EDEL OLIVER Rep #: [id number] : 1975 48 From: He [place] DO PCP: Dr. Mehdi Zeng MD Status:REG ER Location: ED HPI History of Present Illness Chief Complaint: Bite Narrative Narrative: Patient is a 48-year-old female with past medical history of hypertension who presented to the emergency department with a chief complaint of being bit by a raccoon earlier this morning. Patient states that she was plugging in her TV when there was a raccoon behind the stand and it bit her. States that there is no break in the skin. States that the raccoon is outside and notes that this is her second finger on the left hand. States that she cleansed her hand after the incident. States that this was more of a warning sign she states. She states that she went to the family physician today and they noted that the patient should have the rabies vaccine and immunoglobulin series despite no break in her skin. She states that she discussed with her son who is in medical school as well and he was urging her to get this done as well. [facility] Medical History Actinic keratosis of right cheek Neoplasm of skin of abdomen Actinic keratosis Actinic keratosis of forehead History of gestational diabetes Non-smoker DVT (deep venous thrombosis) Mass of right axilla Mass of axillary tail of right breast Skin cancer Hives Bone fracture macrosomia during in third trimester Elderly multigravida in third trimester Gestational diabetes mellitus (GDM) affecting fifth History of kidney stones High blood pressure Home Medications ???Medication ???Instructions ???Recorded ???Last Taken ???Type lisinopril 10 mg tablet 10 mg PO DAILY 07/01/22 Unknown History Allergy/AdvReac Type Severity Reaction Status Date / Time No Known Allergies Allergy Verified 01/21/24 12:31 Family History Father Anesthesia complication Angina at rest Asthma Diabetes Heart disease Hypertension High cholesterol CVA (cerebral vascular accident) Sister Depression (emotion) Other History of blood clots Surgical History History of breast lump/mass excision History of lithotripsy History of squamous cell carcinoma excision Mass of soft tissue of right lower extremity Social History Smoking Status: Never smoker alcohol intake: never substance use type: does not use additional social history: DOES NOT USE ASPIRIN DOES NOT USE IBUPROFEN ROS ROS ED ROS Narrative Constitutional: Denies fevers or chills Cardiovascular: Denies chest pain Neurological: Denies numbness, weakness, tingling Musculoskeletal: Complains of bite to hand as noted above Skin: Denies rashes or lesions EXAM Physical Exam Narrative Exam Narrative: General: Patient lying in bed rest comfortably did not appear to be acute distress Head: Atraumatic, normocephalic Eyes: PERRL bilateral, EOMI bilateral, no conjunctival injection noted Neck: Soft, supple, trachea midline Cardiovascular: Regular rate and rhythm no murmurs gallops rubs noted Extremities: Radial pulses +2/4 in the bilateral extremities, +5/5 strength noted in the bilateral lower extremities Neurological: Patient follow commands knew that she was at [facility] year is 2023 Skin: Patient's second finger on the left hand was evaluated she has no break in the skin noted where she states that she was bit by this raccoon. No surrounding erythema swelling or purulent discharge noted Const Vital Signs: 01/21/24 12:32 Temperature 97.8 F Temperature Source Oral Pulse Rate 67 Respiratory Rate 16 Blood Pressure 121/84 H Blood Pressure Mean 96 Pulse Ox 100 Oxygen Delivery Method Room Air MDM MDM MDM Narrative Medical decision making narrative: Patient is a 48-year-old female who presents to the emergency department chief complaint of raccoon bite that happened this morning. She states once again that her family physician believes that she needs the rabies vaccine and immunoglobulin series which prompted her here for further evaluation management. Once again there is no break in her skin. The immunoglobulin and the immunization will be ordered and administered here in the emergency department. Patient received her vaccine series and was given the remainder of the dates that she needs to show up for the rest of the series. She is agreeable with this plan she would like to go home she was advised to (more content not included)... Normal [facility] HGMPon 06-16-2018 Erythrocyte distribution width Ratio (RBC) 14.8 % High 11.5-14.5 [facility] ([place]) Comment on above: Performed By: #### H GMP #### [address] [address] Hematocrit Volume Fraction (Bld) 39.6 % Normal 37.0-47.0 [facility] [place] Comment on above: Performed By: #### H GMP #### [address] [address] Hemoglobin mass conc (Bld) 13.2 G/dL Normal 12.0-16.0 [facility] [place] Comment on above: Performed By: #### H GMP #### [address] [address] MCH Entitic mass (RBC) 32.4 pg High 27.0-31.2 [facility] ([place]) Comment on above: Performed By: #### H GMP #### [address] [address] MCHC mass conc (RBC) 33.3 G/dL Normal 33.0-37.0 [facility] ([place]) Comment on above: Performed By: #### H GMP #### [address] [address] MCV Entitic volume (RBC) 97.3 fL High 80.0-94.0 [facility] ([place] Comment on above: Performed By: #### H GMP #### [address] [address] Platelet mean volume Entitic volume (Bld) 9.5 fL Normal 7.4-10.4 [facility] ([place]) Comment on above: Performed By: #### H GMP #### [address] [address] Platelets #/vol (Bld) 222 10 3/mcL Normal 130-400 A [facility] ([place]) Comment on above: Performed By: #### H GMP #### [address] [address] RBC #/vol (Bld) 4.07 10 6/mcL Low 4.20-5.40 [facility] ([place]) Comment on above: Performed By: #### H GMP #### [address] [address] WBC #/vol (Bld) 12.60 10 3/mcL High 4.60-10.80 [facility] ([place]) Comment on above: Performed By: #### H GMP #### [address] [address] GBPCRon 06-11-2018 GBPCR . MICRO - Microbiology PROCEDURE: Group B Strep PCR [*1] SOURCE: Vaginal Rectal BODY SITE: COLLECTED DATE/TIME: 06/09/2018 11:51 EST RECEIVED DATE/TIME: 06/09/2018 19:09 AUDIO VISUAL SPECIALIST START DATE/TIME: 06/09/2018 20:09 EST FREE TEXT SOURCE: FINAL REPORTS Final Report [] Verified Date/Time/Personnel: 06/11/2018 13:44 EST GBS NEGATIVE. Group B Streptococcus DNA not detected by Real-Time. Polymerase Chain Reaction (PCR). A negative result does not rule out the possibility of Group B Streptococcus False negative results may occur when Group B Streptococcus concentration is below the level of detection of 200 CFU/mL of sample preparation reagent. If the patient has signs or symptoms of infection, other laboratory tests and clinical information should be used to confirm the negative result. This test is not intended to differentiate carriers of Group B Streptococcus from those with Streptococcus disease. Performing Locations *1: This test was performed at: [facility], [address] [place] [address], [facility]- , [facility] ([place]) Comment on above: Performed By: #### G BPCR #### [place] [address] Encounters Encounter Date Encounter Type Care Provider Facility Start: 10-04-2024 ambulatory Mehdi Zeng Faci lity:[facility] Start: 09-30-2024 Encounter for genera l adult medical examination without abnormal findings Mehdi Zeng [facility] Start: 08-02-2024 End: 08-02-[address] Mehdi Zeng MD Work Phone: [facility] Work Phone: Start: 08-02-2024 End: 08-02-[address] Mehdi Zeng MD -Laboratory, [facility] Start: 08-02-2024 End: 08-02-2024 ambulatory Mehdi Zeng Facility:[facility] Start: 02-22-2024 End: 02-22-2024 ambulatory Boris WILCOX Facility[place] Start: 02-22-2024 End: 02-22-2024 ambulatory Boris WILCOX Facility:[facility] Start: 02-04-2024 End: 02-04-2024 ambulatory Ed Physician Provider Facility:[facility] Start: 01-28-2024 End: 01-28-2024 ambulatory Mehdi Zeng Facility:[facility] Start: 01-24-2024 End: 01-24-2024 ambulatory Ed Physician Provider Facility:[facility] Start: 01-21-2024 End: 01-21-2024 Emergency department patient visit Mehdi Zeng Facility:[facility] Start: 06-17-2018 Patient encounter procedure RONY TO Facility:[facility] Start: 06-16-2018 End: 06-16-2018 Patient encounter procedure LATESHA LEDESMA Facility:[facility] Start: 06-09-2018 End: 06-14-2018 Patient encounter procedure RONY OT Facility:[facility] Procedures Date Procedure Procedure Detail Performing Clinician H/O: surgery History of squam ous cell carcinoma excision Dr. Mehdi Zeng MD Work Phone: Comment on above: Excision 8 mm invasi ve squamous cell carcinoma left upper chest wall just superior to her breast with rhomboid transposition skin flap reconstruction (8 cm2) - 03/08/18 Immunizations Immunization Date Immunization Notes Care Provider Fa [facility] 02-04-2024 rabies vaccine, for intramuscular injection Dr. Mehdi Zeng MD Work Phone: [facility] 01-28-2024 rabies vaccine, for intramuscular injection Dr. Mehdi Zeng MD Work Phone: [facility] 01-24-2024 rabies vaccine, for intramuscular injection Dr. Mehdi Zeng MD Work Phone: [facility] 01-21-[address] Radha Zeng MD Work Phone: [facility] 01-21-2024 rabies vaccine, for intramuscular injection Dr. Mehdi Zeng MD Work Phone: [facility] Payers Date Payer Category Payer Self-pay 2024 Unknown [id number] 2024 Unknown [id number] 2018 Unknown [id number] 1975 Unknown [id number] 2.16.8 [id number] 1975 Unknown [id number] 2.16.8 [id number] 1975 Unknown [id number] 2.16.8 [id number] Unknown [id number] 2.16.8 [id number] Unknown [id number] 2.16.8 [id number] Unknown [id number] 2.16.8 [id number] Unknown [id number] 2.16.8 [id number] Unknown [id number] 2.16.8 [id number] Unknown [id number] 2.16.8 [id number] Unknown [id number] 2.16.8 [id number] Unknown [id number] 2.16.8 [id number] Social History Date Type Detail Facility Start: 01-21-2024 Tobacco smoking stat [facility] Never smoked tobacco (finding) [facility] Start: 06-23-2018 None None [facility] Start: 08-05-2024 Sex Female (finding) [facility] Start: 1975 Sex Assigned At Female W [facility] Medical Equipment Procedure Code Equipment Code Equipment Origin al Text Equipment Identifier Dates Excision, mass RAZA 3GRM HEMO STAT ABS FDA Start: 11-26-2020 Evaluation note Note Date & Type Note Facility Evaluation note No assessment information availa ble [facility] Work Phone: Reason for referral (narrative) Note Date & Type Note Facility Reason for referral (narrative) No reason for referral information available [facility] Work Phone: Summary Purpose Family History No Family History Records Found Relationship Condition Age at Onset Recorded Date/T panda Not Specified History of blood clots Unknown father Complication of anesthesia Unknown Angina at rest Unknown Asthma Unknown Diabetes mellitus Unknown Cardiac disease Unknown Hypertension Unknown High blood cholesterol Unknown Cerebrovascular accident (CVA) Unknown sister Depression Unknown Advance Directives No Advanced Directives Records FoundNo Advanced Directives Records Found Additional Source Comments INFORMATION SOURCE (unrecogn ized section and content) DATE CREATED AUTHOR 06/22/2018 [facility] ([place]) DATE CREATED AUTHOR AUTHOR'S ORGANIZ ATION 10/03/2024 [facility] Care Teams (unrecognized sec tion and content) Team Status: Active Member Role Status Dates Dr. Mehdi Zeng MD Family Provider Active Dr. Mehdi Zeng MD Primary Care Provider Acti ve Team Status: Inactive Member Role Status Dates Dr. Mehdi Zeng MD Primary Care Provider Acti ve Start: August 02, 2024 End: August 02, 2024 Dr. Mehdi Zeng MD Attending Provider Active Start: August 02, 2024 End: August 02, 2024 Goals (unrecognized section and content) Goals may be documented in a n alternate section FOR RECORDS PERTAINING TO PATIENTS WHO ARE OR HAVE BEEN ENROLLED IN A CHEMICAL DEPENDENCY/SUBSTANCEABUSE PROGRAM, SOME INFORMATION MAY BE OMITTED. This clinical summary was aggregated from multiple sources. Caution should be exercised in using it in the provision of clinical care. This summary normalizes information from multiple sources, and as a consequence, information in this document may materially change the coding, format and clinical context of patient data. In addition, data may be omitted in some cases. CLINICAL DECISIONS SHOULD BE BASED ON THE PRIMARY CLINICAL RECORDS. [employer] [facility]. provides no warranty or guarantee of the accuracy or completeness of information in this document.
== END | disposition home or self-care (01) ==
LOC: OPBI 06:57
PROVIDERS: PCP Family Medicine; Referring Provider Family Medicine; Visit Provider Family Medicine
DX: Z12.31 Encounter for screening mammogram for malignant neoplasm of breast (principal)
CPT/HCPCS: 77063; 77067